=== PATIENT | female | born 1970 | race Caucasian/White ===

== ENCOUNTER 2020-08-07 12:24 | Outpatient (CLI) | payer OTHER, SELFPAY ==
--- NOTE | ~2020-08-07 | MMUS_ITS ---
EXAMINATION: MM diagnostic miranda BI w tamar, US breast RT limited HISTORY: Pain in the periareolar and lower right breast TECHNIQUE: Craniocaudal, mediolateral, and mediolateral oblique 3-D tomosynthesis images of the brielle ts were performed and synthetic 2-D images were generated. CAD analysis was submitted and interpreted . High resolution limited right breast ultrasound was performed. COMPARISON: No prior mammogram is currently available for comparison BREAST PARENCHYMAL COMPOSITION: The breasts are almost entirely fatty. FINDINGS: MAMMOGRAPHIC FINDINGS: There is no evidence of suspicious mass, calcification, or architectural distortion to suggest maljason banegas. No mammographic correlate is identified for the patient's reported right breast pain. ULTRASOUND: There is no evidence of focal abnormal solid or cystic mass in the vicinity of the patient's reported right breast pain. IMPRESSION: 1. No specific mammographic or sonographic correlate is identified for the patient's reported right b reast pain. Further evaluation at this time should be based on clinical assessment. Continued follow- up physical examination is recommended. 2. Recommend routine screening mammography in one year. BI-RADS Category 1: Negative Reviewed, dictated and finalized at location A. IMPRESSION: 1. No specific mammographic or sonographic correlate is identified for the sigrid ent's reported right breast pain. Further evaluation at this time should be [facility] ed on clinical assessment. Continued follow-up physical examination is recommen ded. 2. Recommend routine screening mammography in one year. BI-RADS Category 1: Negative IMPRESSION: 1. No specific mammographic or sonographic correlate is identified for the sigrid ent's reported right breast pain. Further evaluation at this time should be bas ed on clinical assessment. Continued follow-up physical examination is recommen ded. 2. Recommend routine screening mammography in one year. BI-RADS Category 1: Negative
== END 2020-08-07 12:25 | disposition home or self-care (01) ==
LOC: ANHIMG 12:29
PROVIDERS: PCP Internal Medicine; Visit Provider Nurse Practitioner Obstetrics & Gynecology
DX: N64.4 Mastodynia (principal)
CPT/HCPCS: 76642; 77062; 77066; G0279

== ENCOUNTER 2020-09-19 12:51 | Emergency (ER) | payer OTHER, SELFPAY ==
[2020-09-19 13:04] VITALS: BP 170/100; PULSE 96; RESP 24; TEMP 36.7; O2SAT 99
--- NOTE | 2020-09-19 13:10 | PC.NURSE ---
Patient mistakenly checked in to our express care, has appointment next door with Dr Diane, walked her over to office
== END 2020-09-19 13:08 | disposition other institution (70) ==
LOC: EXPTROY 12:56
PROVIDERS: Emergency Provider Emergency Medicine
DX: Z53.21 Procedure and treatment not carried out due to patient leaving prior to being seen by health care provider (principal)
CPT/HCPCS: 99199

== ENCOUNTER 2021-08-21 23:54 | Emergency (ER) | payer OTHER, SELFPAY ==
--- NOTE | ~2021-08-21 | XR_ITS ---
EXAMINATION: XR chest 2V DATE: 08/22/2021 01:02 INDICATION: Difficulty breathing. Popping sensation. TECHNIQUE: frontal and lateral views of the chest were obtained. COMPARISON: Chest radiograph dated 04/02/2017 FINDINGS: Lung volumes are decreased on the frontal projection. Calcified nodule at the left lower lung zone co nsistent with old granulomatous disease. No other airspace opacities, pulmonary edema, pleural effusi on or pneumothorax. The cardiomediastinal silhouette is normal. Mild S-shaped curvature of the thorac ic and lumbar spine. IMPRESSION: 1. No acute cardiopulmonary disease. Reviewed, dictated and finalized at location A.
[2021-08-21 23:50] VITALS: BP 140/95; PULSE 72; RESP 38; TEMP 36.7; O2SAT 99
--- NOTE | 2021-08-22 00:10 | PC.NURSE ---
PT TOOK OFF ALL HER MONITORING LEADS. REFUSING TO HAVE THEM PUT BACK ON. PT ALSO REFUSING FOR THIS RN TO PERFORM A PHYSICAL ASSESSMENT (LUNG SOUNDS). PT IS TACHYPNEIC AND HYPERVENTILATING BUT ABLE TO REPEATEDLY SAY I CAN'T BREATHE'
--- NOTE | 2021-08-22 00:40 | PC.NURSE ---
PT STATES TO THIS RN I DON'T LIKE YOU AND DON'T WANT YOU TO BE MY NURSE CLEO CHARGE NURSE MADE AWARE AND WILL COME UP WITH A NEW PLAN
--- NOTE | 2021-08-22 01:06 | ED.EXTPRO ---
HPI - Extremity Problem General Chief complaint: Extremity Problem,Nontraumatic Stated complaint: RIB PAIN Time Seen by Provider: 08/22/21 00:14 History of Present Illness HPI Narrative: Patient is a 51-year-old female with a history of asthma and COPD who presents via EMS for evaluation of rib pain x 2 hours. Patient states she was getting into bed when she felt a pop and developed pain afterwards. Denies treatment with medication prior to arrival. Patient states she feels the pain when she has a deep breath, but denies any difficulty breathing. She denies any falls, or direct trauma to her thorax, chest pain, neck pain, back pain. Does admit to drinking 12 alcoholic drinks this evening. She has no home oxygen requirement for COPD. Related Data Home Medications Medication Instructions Recorded Confirmed estradiol 2 mg tablet 2 mg PO DAILY 09/19/20 10/01/20 Allergies Allergy/AdvReac Type Severity Reaction Status Date / Time latex Allergy Unknown SWELLING Verified 08/22/21 00:13 ON CONTACT Penicillins Allergy Unknown SWELLING, Verified 08/22/21 00:13 PROBLEMS BREATHING bacitracin AdvReac Intermediate SWELLING Verified 08/22/21 00:13 AND PAIN neomycin AdvReac Intermediate SWELLING Verified 08/22/21 00:13 AND PAIN polymyxin B AdvReac Intermediate SWELLING Verified 08/22/21 00:13 AND PAIN morphine AdvReac Unknown VOMITING Verified 08/22/21 00:13 Grass Allergy Unknown HIVES Uncoded 02/15/19 13:01 Review of Systems Review of Systems: Gen.: Denies fevers or chills Eyes: Denies eye pain or visual change ENT: Denies congestion Respiratory: Denies shortness of breath or cough CV: Denies chest pain or palpitations GI: Denies abdominal pain nausea, emesis or diarrhea denies burning, urgency, frequency or hematuria Musculoskeletal: Reports right-sided rib pain Neuro: Denies numbness, tingling, weakness or focal weakness Skin: Denies rash Except as documented, all other systems reviewed and negative All systems reviewed & are unremarkable except as noted in HPI and below PMFSH Past Medical History Medical History Anxiety Asthma Coughing Hypertension IBS (irritable bowel syndrome) Seasonal allergies Surgical History Surgical History H/O: hysterectomy 2019 Hx of section 1988 & 1997 Family History Family History (Updated 09/19/20 @ 13:44 by Glen Marlow [facility]) Grandparent No problems noted. Grandparent Cancer Social History Social History (Updated 09/19/20 @ 13:44 by Glen Marlow [facility]) Tobacco type: cigarettes Alcohol intake: current Substance use: never Exam Narrative: APPEARANCE: Well appearing, no pain in distress, well-nourished. Head: normocephalic and atraumatic. EYES: PERRLA/EOMI, conjunctivae clear NOSE: No nasal drainage EARS: External ear normal in appearance THROAT: Oropharynx is clear. Mucous membranes are moist. NECK: Supple. No adenopathy, no masses. RESPIRATORY: Decreased breath sounds throughout, although patient not cooperating and not taking deep breaths as instructed. No audible wheezing. Tachypneic when initially walking in room, but this normalizes and patient is speaking in full sentences. CARDIOVASCULAR: Regular rate and rhythm without murmurs, rubs, or gallops. ABDOMINAL: Normoactive bowel sounds. Soft, nontender, nondistended. No rebound tenderness or guarding. MUSCULOSKELETAL: Tender to palpation over the left posterior inferior rib cage. No step-offs palpated. Extremities are warm and well-perfused. Moves all extremities well. No edema. NEURO: Normal speech. No focal neurologic deficits. SKIN: No contusions over abdomen. Skin is warm and dry. No rashes. PSYCHIATRIC: Labile affect. Appears intoxicated. Course Course Emergency Course: Patient rechecked, resting
[2021-08-22] MEDS: ACETAMINOPHEN 500 MG TABLET 1000 MG PO (01:30)
[2021-08-22] MEDS: IBUPROFEN 400 MG TABLET 800 MG PO (01:31)
[2021-08-22] MEDS: LIDOCAINE 5% PATCH 1 PATCH TRANSDERM (03:08)
== END 2021-08-22 03:17 | disposition home or self-care (01) ==
PROVIDERS: Emergency Provider Emergency Medicine; PCP Nurse Practitioner Family
DX: R07.81 Pleurodynia (principal); J44.9 Chronic obstructive pulmonary disease, unspecified; I10 Essential (primary) hypertension; K58.9 Irritable bowel syndrome, unspecified; F17.210 Nicotine dependence, cigarettes, uncomplicated
CPT/HCPCS: 71046; 99283; A9270

== ENCOUNTER 2022-11-25 23:04 | Emergency (ER) | payer OTHER, SELFPAY ==
--- NOTE | ~2022-11-25 | CT_ITS ---
Non-contrast Head CT History: Trauma COMPARISON: 11/13/2015 Technique: Axial non-contrast imaging of the brain was performed. Dose reduction technique was used on this scan by utilizing automated exposure control and iterative reconstruction technique. The dose -length product (DLP) was 681.00 mGy-cm. Findings: There is no evidence of intracranial hemorrhage, mass lesion, or acute infarct. Brain par enchyma appears normal. The ventricles and subarachnoid spaces are normal in size. The calvarium ap pears normal. The visualized paranasal sinuses and mastoid air cells are clear. Impression: No significant abnormality seen. Reviewed, dictated and finalized at location . Impression: No significant abnormality seen.
--- NOTE | ~2022-11-25 | CT_ITS ---
Noncontrast CT scan of the cervical spine Technique: Multiple contiguous axial [address] images of the cervical spine were obtained and rec onstructed in 2D sagittal and coronal planes on the acquisition scanner. Dose reduction technique was used on this scan by utilizing automated exposure control, adjustment of the mA and/or kV according to patient size. The dose-length product (DLP) was 602.73 mGy-cm. Clinical History: Pain Findings: No fractures or dislocations. There is reversal of the normal cervical lordosis. Intervert ebral disc spaces are well preserved. No prevertebral soft tissue swelling. Impression: No fracture or subluxation of the cervical spine. Reversal of the normal cervical lordosis. Reviewed, dictated and finalized at location . Impression: No fracture or subluxation of the cervical spine. Reversal of the normal cervical lordosis.
--- NOTE | ~2022-11-25 | XR_ITS ---
Left Hand Technique: PA, oblique, and lateral views were obtained. Clinical History: Pain Findings: There is a comminuted fracture involving the third metacarpal head/distal neck, minimally d isplaced overall no intra-articular extension. Joint spaces are preserved. Soft tissues are unremarka ble. Impression: Comminuted, minimally displaced fracture of the third metacarpal head/distal neck. No definite intra- articular extension. Reviewed, dictated and finalized at location M. Impression: Comminuted, minimally displaced fracture of the third metacarpal head/distal ne ck. No definite intra-articular extension.
[2022-11-25 23:08] VITALS: BP 174/112; PULSE 90; RESP 16; TEMP 36.5; O2SAT 99
[2022-11-26] MEDS: ONDANSETRON HCL ODT 4 MG TABLET PO (00:42)
[2022-11-26] MEDS: TETANUS,DIPHTHERIA,AC PERTUSSIS ADULT (0.5 ML) BOOSTRIX IM (00:43)
[2022-11-26] MEDS: LIDO 1%/EPINEPHRINE 1:100,000 20 ML VIAL 10 ML INFILTRATE (01:44)
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
[2022-11-26 01:55] VITALS: BP 173/98; PULSE 90; RESP 18; O2SAT 99
== END 2022-11-26 01:55 | disposition home or self-care (01) ==
PROVIDERS: Emergency Provider Emergency Medicine; PCP Nurse Practitioner Family
DX: S06.0X0A Concussion without loss of consciousness, initial encounter (principal); S01.81XA Laceration without foreign body of other part of head, initial encounter; S62.333A Displaced fracture of neck of third metacarpal bone, left hand, initial encounter for closed fracture; Z23 Encounter for immunization; J45.909 Unspecified asthma, uncomplicated; I10 Essential (primary) hypertension; K58.9 Irritable bowel syndrome, unspecified; F17.210 Nicotine dependence, cigarettes, uncomplicated; Z90.710 Acquired absence of both cervix and uterus; Y00.XXXA Assault by blunt object, initial encounter
CPT/HCPCS: 12011; 29125; 70450; 72125; 73130; 90471; 90715; 99284; A9270

== ENCOUNTER 2022-12-24 11:22 | Outpatient (CLI) | payer OTHER, SELFPAY ==
--- NOTE | ~2022-12-24 | XR_ITS ---
EXAM: XR hand LT min 3V DATE: 12/24/2022 11:37 HISTORY: left hand fracture 4WKS AGO. REHIT IT LAST NIGHT. PAIN . COMPARISON: None available. FINDINGS: Normal mineralization. Redemonstration of the comminuted distal left third metacarpal frac ture, now with increased anterior angulation and increased impaction. Early healing callus noted. No new acute fracture or dislocation. No lytic or blastic lesion. Mild scattered degenerative changes in the wrist and hand. No erosion or periosteal change. Soft tissues within normal limits. IMPRESSION: Increased anterior angulation and impaction of the comminuted distal left third metacarpa l fracture. Reviewed, dictated and finalized at location K. IMPRESSION: Increased anterior angulation and impaction of the comminuted dista l left third metacarpal fracture.
== END 2022-12-24 11:23 | disposition home or self-care (01) ==
LOC: ANHIMG 11:25
PROVIDERS: PCP Nurse Practitioner Family; Visit Provider Plastic Surgery
DX: S62.309A Unspecified fracture of unspecified metacarpal bone, initial encounter for closed fracture (principal); X58.XXXA Exposure to other specified factors, initial encounter
CPT/HCPCS: 73130

== ENCOUNTER 2023-07-10 13:02 | Inpatient (IN) | payer OTHER, SELFPAY ==
[2023-07-10] VITALS (13 sets, daily range): BP systolic 91–160; BP diastolic 73–104; PULSE 79–96; RESP 15–24; TEMP 36.4–37.2; O2SAT 92–99; BMI 28.2
--- NOTE | ~2023-07-10 | CT_ITS ---
EXAMINATION: CT brain wo con INDICATION: Altered mental status COMPARISON: None TECHNIQUE: Standard unenhanced head CT. The dose-length product (DLP) was 681.00 mGy-cm. The mA was a djusted according to patient size. Iterative reconstruction technique was employed. FINDINGS: No intracranial hemorrhage, acute infarction, or abnormal mass lesion. The ventricles are n ormal. No abnormal mass effect or midline shift. The zeng-white matter differentiation is normal. The basal cisterns are patent. The orbits are normal. There is mild mucosal thickening of the paranasal sinuses. IMPRESSION: 1. No acute intracranial abnormality. Reviewed, dictated and finalized at location F.
--- NOTE | ~2023-07-10 | CT_ITS ---
EXAMINATION: CT abdomen pelvis w con DATE: 07/10/2023 15:46 INDICATION: Vomiting and diarrhea. Low back pain for one week. Dysuria. Hematuria. TECHNIQUE: Computed tomography (CT) of the abdomen and pelvis was performed with 100 CC Omnipaque 350 intravenous contrast. Automated exposure control and iterative reconstruction technique were employe d. Exam dose: 978.60 mGy-cm total exam DLP. COMPARISON: 11/17/2016 CT abdomen pelvis FINDINGS: The lung bases are clear of infiltrate or consolidation. Calcified pulmonary granuloma, dionisio gula. Normal heart size. No pericardial or pleural effusion. Small sliding hiatal hernia. There are 2 hemangiomas of the hepatic dome, present on 11/17/2016 as well, essentially unchanged. Hepatic steatosis. The gallbladder appears unremarkable. No bile duct or pancreatic duct dilatation. No pancreatic mass lesion or calcification. Splenic calcified granulomas. No splenomegaly. Stable small left adrenal mass, likely an adenoma. Stable left adrenal adenomas since 11/17/2016. There is mild bilateral scarring likely related to chronic bilateral pyelonephritis. No suspicious re nal space-occupying mass lesion or urinary tract calculus or hydroureteronephrosis. Urinary bladder appears unremarkable. Status post hysterectomy. Normal caliber of the abdominal aorta. No intraperitoneal or retroperitoneal or pelvic mass lesion or adenopathy or ascites is noted. Normal appendix. No bowel obstruction, bowel wall thickening, pneumatosis or intraperitoneal free air . Old bilateral rib fractures. Severe degenerative disease at L3-4. Moderately severe degenerative disease at L4-5. Prominent degenerative change at the apophyseal joints, with associated grade 1 anterolisthesis at L4 -5. IMPRESSION: Normal appendix. No bowel obstruction or free air Small sliding hiatal hernia Hemangiomas of the liver Hepatic steatosis Stable small left adrenal adenoma Bilateral mild chronic pyelonephritis Status post hysterectomy Reviewed, dictated and finalized at [facility]. Reviewed, dictated and finalized at [facility].
--- NOTE | ~2023-07-10 | XR_ITS ---
XR chest 1V portable DATE: 07/10/2023 15:05 INDICATION: Cough, shortness of breath. History of COPD, hypertension. Smoker. TECHNIQUE: Portable AP chest on 07/10/2023 at 1500 hours COMPARISON: AP and lateral chest on 08/22/2021 FINDINGS: Normal heart size. No hilar or mediastinal enlargement. Calcified pulmonary granuloma, left lower lung. Minimal infiltrate or atelectasis is suggested in the lower lung zones; otherwise no pul monary infiltrate or consolidation, pleural effusion or pulmonary vascular congestion or pneumothorax is evident. Osteopenia. Thoracic scoliosis. IMPRESSION: Minimal infiltrate or atelectasis is suggested in the lower lung zones; otherwise no acti ve cardiopulmonary disease Reviewed, dictated and finalized at location [facility]. IMPRESSION: Minimal infiltrate or atelectasis is suggested in the lower lung zo lainey; otherwise no active cardiopulmonary disease
--- NOTE | 2023-07-10 13:27 | PC.NURSE ---
Pt had an active witnessed seizure lasting roughly 2 minutes in the ED waiting room. Pt was non responsive to any stimuli and had agonal breathing with slight convulsing. Pt immediately brought back to room 8 and began to come to. Pt does not remember the event. Dr. Espinoza at bedside.
[2023-07-10 13:36] LABS: Basophils Percent Auto 0.4 % (0.2-1.2); Hematocrit 41.9 % (37.0-47.0); Hemoglobin 14.4 g/dL (12.0-15.0); Immature Granulocyte Absolute 0.04 K/mm3 (0.00-0.031); Immature Granulocyte Percent A 0.9 % (0-0.5); Lymphocytes Absolute Auto 1.39 K/mm3 (0.9-3.2); Mean Corpuscular HGB Conc 34.4 g/dl (32-36); Mean Corpuscular Hemoglobin 30.6 pg (26-34); Mean Platelet Volume 9.1 fl (7.4-10.4); Monocytes Absolute Auto 0.7 K/mm3 (0.1-0.6); Monocytes Percent Auto 14.7 % (2.6-8.5); Neutrophils Absolute Auto 2.4 K/mm3 (1.3-6.7); Platelet Count Result 192 k/mm3 (150-375); Red Blood Count 4.71 M/mm3 (4.2-5.4); Red Cell Distribution Width 12.7 % (11.5-14.5); White Blood Count 4.5 K/mm3 (4.5-10.0)
[2023-07-10 13:48] LABS: Prothrombin Time 13.1 Seconds (11.1-14.7)
[2023-07-10 13:49] LABS: Alanine Aminotransferase 61 U/L (6-35); Albumin Level 4.6 g/dL (3.5-5.1); Alkaline Phosphatase 130 U/L (38-126); Anion Gap 10 mmol/L (8-16); Aspartate Amino Transferase 84 U/L (14-36); Bilirubin,Total 0.4 mg/dL (0.2-1.3); Blood Urea Nitrogen 15 mg/dL (7-17); Calcium 9.5 mg/dL (8.4-10.2); Carbon Dioxide 19 mmol/L (22-30); Chloride 97 mmol/L (98-107); Estimated CRCL calculation 43 ml/min; Estimated Glomerular Filt Rate 43; Glucose 128 mg/dL (65-110); Lactic Acid Reflex 2.7 mmol/L (0.7-2.0); Lipase 354 U/L (23-300); Magnesium 2.3 mg/dL (1.6-2.3); Potassium 3.9 mmol/L (3.4-5.0); Sodium 126 mmol/L (137-145)
[2023-07-10 13:51] LABS: Ethanol < 10 mg/dL (<10)
[2023-07-10 14:19] LABS: Appearance Urine Cloudy (Clear); Bacteria Urine None Seen /hpf; Bilirubin Urine Negative (Negative); Blood Urine Negative (Negative); Color Urine Yellow (Yellow); Glucose Urine UA Negative (Negative); Ketones Urine Trace mg/dL (Negative); Leukocyte Esterase Ur Negative LEU/UL (Negative); Need Manual Microscopic Reviewed; Nitrate Urine Negative (Negative); Non Pathogenic Casts 0-2; Protein Urine 1+ mg/dL (Negative); RBC Urine 0-2 /hpf (0-2); Specific Grav Ur 1.018 (1.001-1.035); Squamous Epithelial Cell Urine Few /hpf (Few); WBC Urine 0-5 /hpf (0-3); pH Urine 6.5 (5.0-9.0)
[2023-07-10 14:22] LABS: Add Urine Microscopic? YES
[2023-07-10] MEDS: SODIUM CHLORIDE 0.9% IV 1,000 ML 999 ML IV CONT ×2 (14:43→14:59)
[2023-07-10 14:48] LABS: Amphetamine Screen Urine Negative (Negative); Barbiturate Screen Urine Negative (Negative); Benzodiazepines Screen Urine Negative (Negative); Cannabinoid Screen Urine Positive (Negative); Cocaine Screen Urine Negative (Negative); Methadone Screen Urine Negative (Negative); Opiate Screen Urine Negative (Negative); Phencyclidine Screen Urine Negative (Negative)
--- NOTE | 2023-07-10 14:48 | ED.GENADULT ---
HPI - General Adult General Chief complaint: Urogenital-Female Stated complaint: uti/kidney inf Time Seen by Provider: 07/10/23 13:25 History of Present Illness HPI narrative: Patient is a 53-year-old female presenting with altered mental status. Patient's family is at bedside and helps with the history. States that they have both had respiratory symptoms with cough, nasal congestion. They have both also had a lot of diarrhea and nausea. Patient states that she has not been able to keep anything down. While in the waiting room she had an episode of altered mental status. She was staring off and was minimally responsive. She was brought back to a room and then had several episodes of emesis. No tongue biting, seizure-like activity, bladder or bowel incontinence. Patient reports shortness of breath lately but no chest pain. No leg swelling. Denies any abdominal pain currently. Related Data Allergies Allergy/AdvReac Type Severity Reaction Status Date / Time latex Allergy Unknown SWELLING Verified 07/10/23 13:08 ON CONTACT Penicillins Allergy Unknown SWELLING, Verified 07/10/23 13:08 PROBLEMS BREATHING bacitracin AdvReac Intermediate SWELLING Verified 07/10/23 13:08 AND PAIN neomycin AdvReac Intermediate SWELLING Verified 07/10/23 13:08 AND PAIN polymyxin B AdvReac Intermediate SWELLING Verified 07/10/23 13:08 AND PAIN morphine AdvReac Unknown VOMITING Verified 07/10/23 13:08 Grass Allergy Unknown HIVES Uncoded 07/10/23 13:08 Review of Systems Review of Systems: All systems reviewed & are unremarkable except as noted in HPI and below PMFSH Past Medical History Medical History (Updated 07/10/23 @ 22:24 by Denise Espinoza MD) Anxiety Asthma Chronic obstructive pulmonary disease Chronic rhinitis Hypertension Irritable bowel syndrome Seasonal allergies Tobacco abuse Surgical History Surgical History (Updated 07/10/23 @ 20:58 by Tricia rPesley PA-C) History of section 1988 and 1997 History of colonoscopy History of hysterectomy (2019) Family History Family History Grandparent No problems noted. Grandparent Cancer Social History Social History (Updated 07/10/23 @ 20:58 by Tricia Presley PA-C) Social History: Surrogate medical decision maker: Moe Case, significant other. Code status: Full code. Smoking packs per day: 0.5 Smoking cigarettes per day: 10.0 Years smoked: 40 Smoking pack-years: 20.00 Smoking status: Current every day smoker Tobacco type: cigarettes Alcohol intake: current Drinks per week: 12 Alcohol use details: 3 to 6 beers a day. Substance use: current Substance use type: marijuana Do You Feel Safe in your Home?: Yes Lack of Transportation: No Lack of Food: Never True Current Housing: Decline to Answer Concerned About Future Housing: No Difficulty Paying Gas/Electric Bills: No Difficulty Paying for Meds: No Currently Unemployed: YES Education: High School Diploma/GED Difficulty w/ Childcare or Family Care: No Spiritual care concerns: No Exam Narrative: GENERAL: Nontoxic, in no acute distress HEAD: Normocephalic, atraumatic. EYES: PERRLA and EOMI. ENT: Mucous membranes tacky NECK: Supple. CHEST: Clear to auscultation. No respiratory distress. HEART: Regular rate and rhythm ABDOMEN: Soft, nontender, nondistended EXTREMITIES: Normal range of motion. No edema. SKIN: Warm, dry, no rash. NEURO: No focal deficits. Alert and oriented x3. PSYCH: Normal mood and affect. Course Vital Signs Vital signs: Vital Signs Temperature 97.5 F L 07/10/23 13:03 Pulse Rate 93 07/10/23 13:03 Respiratory Rate 20 07/10/23 13:03 Blood Pressure 96/76 L 07/10/23 13:03 Pulse Oximetry 99 07/10/23 13:03 Oxygen Delivery Room Air 07/10/23 13:03 Temperature 98.4 F 07/13/23 11:52 P
[2023-07-10] MEDS: ONDANSETRON INJ 4 MG/2 ML VIAL IV PUSH (14:58)
[2023-07-10] MEDS: IPRATROPIUM BR 0.02% INH SOLN 0.5 MG/2.5 ML VIAL INHALATION (15:10)
[2023-07-10] MEDS: ALBUTEROL SULFATE NEB 2.5 MG/3 ML INH 5 MG INHALATION (15:10)
[2023-07-10 16:33] LABS: Reflex Lactic Acid Yes or No Add Lactic
[2023-07-10 16:42] LABS: Influenza A QL RT-PCR Negative (Negative); Influenza B QL RT-PCR Positive (Negative); RSV RNA, RT-PCR Negative (Negative); SARS-CoV-2 RNA PCR Negative (Negative)
[2023-07-10 17:32] LABS: Anion Gap 6 mmol/L (8-16); Blood Urea Nitrogen 17 mg/dL (7-17); Calcium 8.5 mg/dL (8.4-10.2); Carbon Dioxide 21 mmol/L (22-30); Chloride 97 mmol/L (98-107); Estimated CRCL calculation 43 ml/min; Estimated Glomerular Filt Rate 43; Glucose 103 mg/dL (65-110); Potassium 3.6 mmol/L (3.4-5.0); Sodium 124 mmol/L (137-145)
[2023-07-10 17:33] LABS: Creatine Kinase 76 U/L (30-135); Lactic Acid 1.6 mmol/L (0.7-2.0)
--- NOTE | 2023-07-10 18:08 | ADMGEN ---
This patient, Raven Nicole, was admitted to 3 Med Surg Room 303-01 @ 1808. Patient/family oriented to hospital policies and general routines including ID bracelet, bed and alarms, visiting hours, pain management, procedures, bathroom and other care routines, personal items, smoking policy, room service/diet, and visiting hours. Information on how to activate the Rapid Response Team has been discussed. Patient/Family are encouraged to report perceived risks to care and to ask questions if they do not understand what they are told or what they should do.
--- NOTE | 2023-07-10 19:26 | PM.IMHP ---
H&P: HPI History of Present Illness Date/Time: 07/10/23 19:25 Chief Complaint: Multiple complaints. Narrative: This is a 53-year-old female smoker with chronic obstructive pulmonary disease, asthma, hypertension, and anxiety who presented to the emergency department via private vehicle for evaluation of multiple complaints. The patient provides the following history. Her boyfriend had URI symptoms last week in and she began to feel unwell on Thursday with symptoms to include diffuse headache, sinus congestion, dry cough, sore throat, and body aches. The last several days she has developed nausea and reports multiple episodes of nonbloody and nonbilious emesis as well as diarrhea each day. She also reports subjective fever, chills, and sweats. Her appetite is terrible and she has had minimal oral intake. While in triage she told her boyfriend that she was feeling particularly unwell at which time she apparently had a syncopal episode. Boyfriend reports that her head fell backwards and she became extremely pale. He noticed that her arms were tremoring and they are concerned that she may have had a seizure. In fact she has had several episodes where she has blacked out over the years without explanation, frequently coming to in a confused state. It does not sound as though she has had a complete workup for that. She was immediately brought back to a room for evaluation where she had several episodes of emesis. In any event, she was afebrile on arrival to the ED. She had a couple of lower blood pressures but it has improved with IV fluids. Labs were significant for a sodium of 126, chloride 97, carbon dioxide 19, BUN 15, creatinine 1.30, lactic acid 2.7, AST 84, ALT 61, alkaline phosphatase 130, lipase 354. Urine was positive for 1+ protein trace ketones. She tested positive for influenza B. Brain CT showed no acute findings. Chest x-ray showed minimal infiltrate or atelectasis in the lower lung zones. CT of the abdomen and pelvis showed no acute findings. She was given a 2 L normal saline bolus and she is being admitted in this setting for further treatment. Review of Systems Review of Systems: Twelve systems were reviewed. No focal weakness, paresthesias, vertigo, visual changes, facial droop, or difficulties speaking and swallowing. She denies tongue bite. No bowel or bladder incontinence. No chest pain or shortness of breath. She denies urinary symptoms. No alcohol for the last 5 days. She has never had signs or symptoms of alcohol withdrawal. Except as documented, all other systems were reviewed and are negative. [facility] Past Medical History Medical History (Updated 07/10/23 @ 21:06 by Tricia Presley PA-C) Anxiety Asthma Chronic obstructive pulmonary disease Chronic rhinitis Hypertension Irritable bowel syndrome Seasonal allergies Tobacco abuse Surgical History Surgical History (Updated 07/10/23 @ 20:58 by Tricia Presley PA-C) History of section 1988 and 1997 History of colonoscopy History of hysterectomy (2019) Family History Family History Grandparent No problems noted. Grandparent Cancer Social History Social History (Updated 07/10/23 @ 20:58 by Tricia Presley PA-C) Social History: Surrogate medical decision maker: Moe Jeff, significant other. Code status: Full code. Smoking packs per day: 0.5 Smoking cigarettes per day: 10.0 Years smoked: 40 Smoking pack-years: 20.00 Smoking status: Current every day smoker Tobacco type: cigarettes Alcohol intake: current Drinks per week: 12 Alcohol use details: 3 to 6 beers a day. Substance use: current Substance use type: marijuana Do You Feel Safe in your Home?: Yes Lack of Transportation: No Lack of Food: Never True Current Housing: Decline to Answer Concerned About Future Housing: No Difficulty Paying Gas/Electric Bills: No Difficulty Payi
[2023-07-10 20:27] LABS: Creatinine Urine 201.1 mg/dL
[2023-07-10 20:29] LABS: Sodium Urine Random 29 meq/L
[2023-07-10] MEDS: SODIUM CHLORIDE 0.9% IV 1,000 ML 100 ML IV CONT (21:25)
[2023-07-10] MEDS: OSELTAMIVIR PHOSPHATE 30 MG CAPSULE PO (21:30)
[2023-07-10 23:46] LABS: Sodium 125 mmol/L (137-145)
[2023-07-11] VITALS (9 sets, daily range): BP systolic 140–190; BP diastolic 71–99; PULSE 69–87; RESP 16; TEMP 36.1–36.6; O2SAT 93–98
[2023-07-11 00:21] LABS: Hepatitis B Surface Antigen Negative (Negative)
[2023-07-11 00:27] LABS: HAV RESULT Negative (Negative); Hepatitis B Core IgM Result Negative (Negative)
[2023-07-11 00:39] LABS: Hepatitis C Virus Antibody Negative (Negative)
[2023-07-11 06:48] LABS: Hematocrit 35.3 % (37.0-47.0); Hemoglobin 11.8 g/dL (12.0-15.0); Mean Corpuscular HGB Conc 33.4 g/dl (32-36); Mean Corpuscular Hemoglobin 30.3 pg (26-34); Mean Corpuscular Volume 90.7 fl (80-100); Mean Platelet Volume 10.1 fl (7.4-10.4); Platelet Count Result 114 k/mm3 (150-375); Red Blood Count 3.89 M/mm3 (4.2-5.4); Red Cell Distribution Width 12.9 % (11.5-14.5); White Blood Count 2.9 K/mm3 (4.5-10.0)
[2023-07-11 06:58] LABS: Alanine Aminotransferase 51 U/L (6-35); Albumin Level 3.5 g/dL (3.5-5.1); Alkaline Phosphatase 98 U/L (38-126); Anion Gap 5 mmol/L (8-16); Aspartate Amino Transferase 58 U/L (14-36); Bilirubin,Total 0.4 mg/dL (0.2-1.3); Blood Urea Nitrogen 15 mg/dL (7-17); Calcium 8.1 mg/dL (8.4-10.2); Carbon Dioxide 17 mmol/L (22-30); Chloride 102 mmol/L (98-107); Estimated CRCL calculation 63 ml/min; Estimated Glomerular Filt Rate 58; Glucose 90 mg/dL (65-110); Magnesium 1.9 mg/dL (1.6-2.3); Potassium 3.6 mmol/L (3.4-5.0); Sodium 124 mmol/L (137-145)
[2023-07-11] MEDS: SODIUM CHLORIDE 0.9% IV 1,000 ML 100 ML IV CONT (08:28)
[2023-07-11] MEDS: OSELTAMIVIR PHOSPHATE 30 MG CAPSULE PO ×2 (08:29→20:02)
[2023-07-11] MEDS: MONTELUKAST SODIUM 10 MG TABLET PO (08:29)
[2023-07-11] MEDS: busPIRone HCL 5 MG TABLET 15 MG PO ×2 (08:29→16:51)
[2023-07-11] MEDS: ENOXAPARIN 40 MG/0.4 ML SYRINGE SUB-Q (08:29)
[2023-07-11] MEDS: CITALOPRAM HYDROBROMIDE 20 MG TABLET 40 MG PO (08:29)
--- NOTE | 2023-07-11 12:47 | PM.IMPN ---
Progress Note: A&P Assessment and Plan (1) Acute kidney injury: Code(s): N17.9 - Acute kidney failure, unspecified Status: Acute (2) Sepsis: Code(s): A41.9 - Sepsis, unspecified organism Status: Acute (3) Influenza B: Code(s): J10.1 - Influenza due to other identified influenza virus with other respiratory manifestations Status: Acute (4) Dehydration: Code(s): E86.0 - Dehydration Status: Acute (5) Vasovagal syncope: Code(s): R55 - Syncope and collapse Status: Acute (6) Hyponatremia: Code(s): E87.1 - Hypo-osmolality and hyponatremia Status: Acute (7) Elevated LFTs: Code(s): R79.89 - Other specified abnormal findings of blood chemistry Status: Acute (8) Chronic obstructive pulmonary disease: Code(s): J44.9 - Chronic obstructive pulmonary disease, unspecified Status: Acute (9) Hypertension: Code(s): I10 - Essential (primary) hypertension Status: Acute (10) Tobacco abuse: Code(s): Z72.0 - Tobacco use Status: Acute Plan 83-year-old female who presented on 07/10/2023 with altered mental status. Patient had respiratory symptoms with cough nasal congestion lots of diarrhea nausea since past few weeks. While in the waiting room she had an episode of altered mental status and was staring off with minimally responsiveness. She was brought to the room and then had several episodes of emesis no tongue biting seizure-like activity bowel or bladder incontinence. She reports some shortness of breath but no chest pain. She was mildly hypotensive eyes was afebrile. Laboratory evaluation revealed hyponatremia of 125 mild acidosis SILVERIO with creatinine 1. CT abdomen and pelvis with chronic pyelonephritis but no acute abnormalities. CT brain without any acute abnormalities. Patient tested positive for influenza B. WBC platelet 192 lactic acid was elevated at 2.7. Lipase elevated at 354. Urine drug screen positive for cannabinoids. Urine sodium 29 without alcohol less than 10 influenza a RSV and COVID was negative. Chest x-ray showed minimal infiltrate or atelectasis suggested in the lower lung zones otherwise no active cardiopulmonary disease. Patient received IV fluids with improvement in her blood pressure and lactic acid level. No evidence of any bacterial infection and hence antibiotics on hold. Blood culture has been obtained. Influenza B treated with Tamiflu which will be continued. Hyponatremia clear related to dehydration p.o. intake nausea vomiting and diarrhea for the past several days along with chronic alcohol use. No prior levels available Syncopal episode likely vasovagal. Seizure is a possibility prior several episodes of unexplained blackouts. She is monitored on telemetry to rule out any cardiac dysrhythmias. Echo and EEG is ordered. CT head is negative Elevated LFTs: Viral infection versus chronic alcohol use. Hepatitis profile negative. SILVERIO mild resolved Anxiety depression home medication citalopram buspirone Chronic alcohol abuse [facility] protocol DVT prophylaxis Lovenox Code status full code Subjective Date/time seen: 07/11/23 12:47 Interval history: Chart reviewed. Feels okay. Denies any new complaints. Review of Systems Review of Systems: All systems reviewed & are unremarkable except as noted in HPI and below Exam Narrative: General: Mildly ill-appearing female in the semi-Richey position in bed. HEENT: Normocephalic, atraumatic. PERRL, EOMI. Sclera anicteric. Tacky mucous membranes. Neck: Supple. Respiratory: Respirations are nonlabored. Lung sounds are a bit diminished at the bases but otherwise clear to auscultation. Cardiovascular: Regular rate and rhythm with S1-S2. Gastrointestinal: Abdomen is soft, nontender, and nondistended with positive bowel sounds. Skin: Warm and dry. Livedo reticularis of the bilateral lower extremities which she states is chronic and unchan
[2023-07-11] MEDS: hydrOXYzine HCL 25 MG TABLET PO (13:02)
[2023-07-11] MEDS: LOPERAMIDE HCL 2 MG CAPSULE PO (15:24)
--- NOTE | 2023-07-11 21:07 | ECHO_ITS ---
Patient Info Name: Raven Nicole Age: 53 years : 1970 Gender: Female Ht: 67 in Wt: 180 lbs BSA: 1.98 m2 HR: 78 bpm BP: 156 / 80 mmHg Heart Rhythm: Sinus Rhythm Technical Quality: Fair Exam Date: 07/11/2023 8:36 AM Exam Location: Echo Lab Exam Room: 303 Patient Status: Inpatient Admit Date: 07/10/2023 Staff Ordering Physician: Tricia Presley PA-C [place] Turner: Cindy Koroma RDCS Attending Provider: Elaine Wright MD Referring Physician: Sakina GLASS; Exam Type: CA echo doppler color flow Study Info Indications - syncope influenza Complete two-dimensional, color flow and Doppler transthoracic echocardiogram is performed. Summary 1. Complete two-dimensional, color flow and Doppler transthoracic echocardiogram is performed. 2. Left ventricular chamber dimension is normal. 3. Left ventricular systolic function is hyperdynamic, estimated at >70%. 4. There is moderately increased left ventricular wall thickness. 5. The left ventricular diastolic function is grade II diastolic dysfunction. 6. There is mild tricuspid valve regurgitation. 7. There is mild pulmonic regurgitation. Left Ventricle Left ventricular chamber dimension is normal. Left ventricular systolic function is hyperdynamic, estimated at >70%. There is moderately increased left ventricular wall thickness. The left ventricular diastolic function is grade II diastolic dysfunction. Right Ventricle Right ventricular chamber dimension is normal. Right ventricular systolic function is normal. Left Atria Left atrial chamber dimension is normal. Right Atria Right atrial chamber dimension is normal. Atrial Septum Intact interatrial septum visualized by color flow imaging. Aortic Valve The aortic valve is trileaflet. There is mild aortic valve sclerosis. There is no aortic valve stenosis. There is trace aortic valve regurgitation. Pulmonic Valve The pulmonic valve is normal. There is no pulmonic valve stenosis. There is mild pulmonic regurgitation. Mitral Valve The mitral valve has thickened leaflets. There is no mitral valve stenosis. There is trace mitral valve regurgitation. Tricuspid Valve The tricuspid valve leaflets are normal. There is no significant tricuspid valve stenosis. There is mild tricuspid valve regurgitation. No pulmonary hypertension, estimated pulmonary arterial systolic pressure is 31 mmHg. Pericardium/Pleural The pericardium appears normal. There is no pericardial effusion. Inferior Vena Cava Normal inferior vena cava with >50% collapse upon inspiration consistent with normal right atrial pressure, 10 mmHg. Aorta The aortic root size at the sinus of Valsalva is mildly dilated. Left Ventricular Outflow Tract Name Value Normal LVOT 2D LVOT Diameter 2.0 cm LVOT Doppler LVOT Peak Gradient 5 mmHg LVOT Mean Gradient 3 mmHg LVOT VTI 20 cm LVOT VTI/AV VTI Ratio 0.7 LVOT Stroke Volume 62 ml LVOT CO 14.2 l/min LVOT CI 7.1 l/min/m2 Pulmonic Valve ----
[2023-07-11] MEDS: METOPROLOL SUCCINATE EXT REL 25 MG TABCR PO (21:47)
[2023-07-11] MEDS: METOPROLOL SUCCINATE EXT REL 50 MG TABCR PO (21:47)
[2023-07-12] VITALS (13 sets, daily range): BP systolic 140–187; BP diastolic 78–98; PULSE 62–80; RESP 16–18; TEMP 36.3–36.4; O2SAT 96–99
[2023-07-12 07:25] LABS: Basophils Percent Auto 0.8 % (0.2-1.2); Eosinophils Percent Auto 0.4 % (0-4.4); Hematocrit 37.6 % (37.0-47.0); Hemoglobin 12.4 g/dL (12.0-15.0); Immature Granulocyte Absolute 0.02 K/mm3 (0.00-0.031); Immature Granulocyte Percent A 0.8 % (0-0.5); Lymphocytes Absolute Auto 0.83 K/mm3 (0.9-3.2); Lymphocytes Percent Auto 33.9 % (18.3-44.2); Mean Corpuscular Hemoglobin 29.9 pg (26-34); Mean Corpuscular Volume 90.6 fl (80-100); Mean Platelet Volume 9.4 fl (7.4-10.4); Monocytes Absolute Auto 0.2 K/mm3 (0.1-0.6); Monocytes Percent Auto 9.8 % (2.6-8.5); Neutrophils Absolute Auto 1.3 K/mm3 (1.3-6.7); Neutrophils Percent Auto 54.3 % (45.5-73.1); Platelet Count Result 135 k/mm3 (150-375); Red Blood Count 4.15 M/mm3 (4.2-5.4); Red Cell Distribution Width 12.6 % (11.5-14.5); White Blood Count 2.5 K/mm3 (4.5-10.0)
[2023-07-12 08:01] LABS: Alanine Aminotransferase 48 U/L (6-35); Albumin Level 3.6 g/dL (3.5-5.1); Alkaline Phosphatase 98 U/L (38-126); Anion Gap 5 mmol/L (8-16); Aspartate Amino Transferase 53 U/L (14-36); Bilirubin,Total 0.4 mg/dL (0.2-1.3); Blood Urea Nitrogen 9 mg/dL (7-17); Calcium 8.5 mg/dL (8.4-10.2); Carbon Dioxide 20 mmol/L (22-30); Chloride 103 mmol/L (98-107); Estimated CRCL calculation 77 ml/min; Estimated Glomerular Filt Rate > 60; Glucose 89 mg/dL (65-110); Magnesium 1.8 mg/dL (1.6-2.3); Potassium 3.5 mmol/L (3.4-5.0); Sodium 128 mmol/L (137-145)
[2023-07-12] MEDS: busPIRone HCL 5 MG TABLET 15 MG PO ×2 (08:42→17:33)
[2023-07-12] MEDS: CITALOPRAM HYDROBROMIDE 20 MG TABLET 40 MG PO (08:42)
[2023-07-12] MEDS: MONTELUKAST SODIUM 10 MG TABLET PO (08:42)
[2023-07-12] MEDS: OSELTAMIVIR PHOSPHATE 30 MG CAPSULE PO ×2 (08:42→21:14)
[2023-07-12] MEDS: METOPROLOL SUCCINATE EXT REL 25 MG TABCR PO (08:43)
[2023-07-12] MEDS: METOPROLOL SUCCINATE EXT REL 50 MG TABCR PO (08:44)
[2023-07-12] MEDS: ENOXAPARIN 40 MG/0.4 ML SYRINGE SUB-Q (08:45)
[2023-07-12] MEDS: hydrOXYzine HCL 25 MG TABLET PO ×2 (08:47→21:14)
[2023-07-12] MEDS: ONDANSETRON INJ 4 MG/2 ML VIAL IV PUSH (09:37)
--- NOTE | 2023-07-12 16:40 | PM.IMPN ---
Progress Note: A&P Assessment and Plan (1) Acute kidney injury: Code(s): N17.9 - Acute kidney failure, unspecified Status: Acute (2) Sepsis: Code(s): A41.9 - Sepsis, unspecified organism Status: Acute (3) Influenza B: Code(s): J10.1 - Influenza due to other identified influenza virus with other respiratory manifestations Status: Acute (4) Dehydration: Code(s): E86.0 - Dehydration Status: Acute (5) Vasovagal syncope: Code(s): R55 - Syncope and collapse Status: Acute (6) Hyponatremia: Code(s): E87.1 - Hypo-osmolality and hyponatremia Status: Acute (7) Elevated LFTs: Code(s): R79.89 - Other specified abnormal findings of blood chemistry Status: Acute (8) Chronic obstructive pulmonary disease: Code(s): J44.9 - Chronic obstructive pulmonary disease, unspecified Status: Acute (9) Hypertension: Code(s): I10 - Essential (primary) hypertension Status: Acute (10) Tobacco abuse: Code(s): Z72.0 - Tobacco use Status: Acute Plan 83-year-old female who presented on 07/10/2023 with altered mental status. Patient had respiratory symptoms with cough nasal congestion lots of diarrhea nausea since past few weeks. While in the waiting room she had an episode of altered mental status and was staring off with minimally responsiveness. She was brought to the room and then had several episodes of emesis no tongue biting seizure-like activity bowel or bladder incontinence. She reports some shortness of breath but no chest pain. She was mildly hypotensive eyes was afebrile. Laboratory evaluation revealed hyponatremia of 125 mild acidosis SILVERIO with creatinine 1. CT abdomen and pelvis with chronic pyelonephritis but no acute abnormalities. CT brain without any acute abnormalities. Patient tested positive for influenza B. WBC platelet 192 lactic acid was elevated at 2.7. Lipase elevated at 354. Urine drug screen positive for cannabinoids. Urine sodium 29 without alcohol less than 10 influenza a RSV and COVID was negative. Chest x-ray showed minimal infiltrate or atelectasis suggested in the lower lung zones otherwise no active cardiopulmonary disease. Patient received IV fluids with improvement in her blood pressure and lactic acid level. No evidence of any bacterial infection and hence antibiotics on hold. Blood culture has been obtained. Influenza B treated with Tamiflu which will be continued. Hyponatremia likely related to dehydration p.o. intake nausea vomiting and diarrhea for the past several days along with chronic alcohol use. No prior levels available. Slowly Syncopal episode likely vasovagal. Seizure is a possibility prior several episodes of unexplained blackouts. She is monitored on telemetry to rule out any cardiac dysrhythmias. Echo with EF more than 70% grade 2 diastolic dysfunction moderately increased left ventricular wall thickness mild TR mild VT and EEG is ordered. CT head is negative Elevated LFTs: Viral infection versus chronic alcohol use. Hepatitis profile negative. SILVERIO mild resolved Anxiety depression home medication citalopram buspirone Chronic alcohol abuse [facility] protocol DVT prophylaxis Lovenox Code status full code Subjective Date/time seen: 07/12/23 16:40 Interval history: Feels a bit nauseous otherwise overall feeling better. No other new complaints Review of Systems Review of Systems: All systems reviewed & are unremarkable except as noted in HPI and below Exam Narrative: General: Mildly ill-appearing female in the semi-Richey position in bed. HEENT: Normocephalic, atraumatic. PERRL, EOMI. Sclera anicteric. Tacky mucous membranes. Neck: Supple. Respiratory: Respirations are nonlabored. Lung sounds are a bit diminished at the bases but otherwise clear to auscultation. Cardiovascular: Regular rate and rhythm with S1-S2. Gastrointestinal: Abdomen is soft, nontender, and
[2023-07-13] VITALS (9 sets, daily range): BP systolic 129–159; BP diastolic 83–113; PULSE 66–87; RESP 16–20; TEMP 36.8–36.9; O2SAT 96–97; BMI 28.5
[2023-07-13 06:53] LABS: Basophils Percent Auto 0.4 % (0.2-1.2); Eosinophils Percent Auto 0.8 % (0-4.4); Hematocrit 37.5 % (37.0-47.0); Hemoglobin 12.6 g/dL (12.0-15.0); Immature Granulocyte Absolute 0.01 K/mm3 (0.00-0.031); Immature Granulocyte Percent A 0.4 % (0-0.5); Lymphocytes Absolute Auto 1.01 K/mm3 (0.9-3.2); Lymphocytes Percent Auto 42.4 % (18.3-44.2); Mean Corpuscular HGB Conc 33.6 g/dl (32-36); Mean Corpuscular Hemoglobin 30.1 pg (26-34); Mean Corpuscular Volume 89.5 fl (80-100); Mean Platelet Volume 9.6 fl (7.4-10.4); Monocytes Absolute Auto 0.2 K/mm3 (0.1-0.6); Monocytes Percent Auto 9.7 % (2.6-8.5); Neutrophils Absolute Auto 1.1 K/mm3 (1.3-6.7); Neutrophils Percent Auto 46.3 % (45.5-73.1); Platelet Count Result 131 k/mm3 (150-375); Red Blood Count 4.19 M/mm3 (4.2-5.4); Red Cell Distribution Width 12.4 % (11.5-14.5); White Blood Count 2.4 K/mm3 (4.5-10.0)
[2023-07-13 07:09] LABS: Alanine Aminotransferase 45 U/L (6-35); Albumin Level 3.5 g/dL (3.5-5.1); Alkaline Phosphatase 99 U/L (38-126); Anion Gap 7 mmol/L (8-16); Aspartate Amino Transferase 46 U/L (14-36); Bilirubin,Total 0.4 mg/dL (0.2-1.3); Blood Urea Nitrogen 10 mg/dL (7-17); Calcium 8.5 mg/dL (8.4-10.2); Carbon Dioxide 19 mmol/L (22-30); Chloride 103 mmol/L (98-107); Estimated CRCL calculation 77 ml/min; Estimated Glomerular Filt Rate > 60; Glucose 89 mg/dL (65-110); Magnesium 1.8 mg/dL (1.6-2.3); Potassium 3.5 mmol/L (3.4-5.0); Sodium 129 mmol/L (137-145)
[2023-07-13] MEDS: ENOXAPARIN 40 MG/0.4 ML SYRINGE SUB-Q (09:33)
[2023-07-13] MEDS: CITALOPRAM HYDROBROMIDE 20 MG TABLET 40 MG PO (09:34)
[2023-07-13] MEDS: MONTELUKAST SODIUM 10 MG TABLET PO (09:34)
[2023-07-13] MEDS: METOPROLOL SUCCINATE EXT REL 25 MG TABCR PO (09:34)
[2023-07-13] MEDS: METOPROLOL SUCCINATE EXT REL 50 MG TABCR PO (09:34)
[2023-07-13] MEDS: busPIRone HCL 5 MG TABLET 15 MG PO (09:35)
[2023-07-13] MEDS: hydrOXYzine HCL 25 MG TABLET PO (09:38)
[2023-07-13] MEDS: OSELTAMIVIR PHOSPHATE 30 MG CAPSULE PO (09:44)
--- NOTE | 2023-07-13 11:38 | WPDNEUROLOGY ---
Neurology EEG Report General Information Date of Study: 07/13/23 TEST eeg DIAGNOSIS Seizure-like activity CONDITION OF RECORDING awake drowsy and sleep EEG NUMBER [id number] CLINICAL HISTORY Patient reports she came to the ER 3 days ago due to nausea dizziness and weakness and while in ER she had a seizure-like episode. EEG DESCRIPTION Basic resting occipital frequency consists of low voltage 9 to 11 hertz per 2nd alpha admixed with low-voltage 15 to 18 hertz per 2nd beta P during drowsiness low-voltage beta activity seen diffusely admixed with waxing and waning posterior alpha rhythm. Intermittent asymmetrical activities noted over the left hemisphere photic stimulation not done, hyperventilation not done. Non paroxysmal questionably focal and lateralizing. IMPRESSION Only questionably abnormal record due to the presence of the asymmetrical activity over the left hemisphere. This particular abnormality as per se is not diagnostic of seizure disorder but could be suggestive of underlying asymmetric and a repeat EEG of further evaluation recommended.
--- NOTE | 2023-07-13 12:44 | PM.DS ---
DS: Admitting Diagnosis Discharge Date 07/13/2023 Admitting Diagnosis Altered mental status DS: Discharge Diagnosis Discharge Diagnosis (1) Acute kidney injury: Code(s): N17.9 - Acute kidney failure, unspecified Status: Acute (2) Sepsis: Code(s): A41.9 - Sepsis, unspecified organism Status: Acute (3) Influenza B: Code(s): J10.1 - Influenza due to other identified influenza virus with other respiratory manifestations Status: Acute (4) Dehydration: Code(s): E86.0 - Dehydration Status: Acute (5) Vasovagal syncope: Code(s): R55 - Syncope and collapse Status: Acute (6) Hyponatremia: Code(s): E87.1 - Hypo-osmolality and hyponatremia Status: Acute (7) Elevated LFTs: Code(s): R79.89 - Other specified abnormal findings of blood chemistry Status: Acute (8) Chronic obstructive pulmonary disease: Code(s): J44.9 - Chronic obstructive pulmonary disease, unspecified Status: Acute (9) Hypertension: Code(s): I10 - Essential (primary) hypertension Status: Acute (10) Tobacco abuse: Code(s): Z72.0 - Tobacco use Status: Acute DS: Summary Hospital Course Hospital Course: 83-year-old female who presented on 07/10/2023 with altered mental status.? Patient had respiratory symptoms with cough nasal congestion lots of diarrhea nausea since past few weeks.? While in the waiting room she had an episode of altered mental status and was staring off with minimally responsiveness.? She was brought to the room and then had several episodes of emesis no tongue biting seizure-like activity bowel or bladder incontinence.? She reports some shortness of breath but no chest pain.? She was mildly hypotensive eyes was afebrile.? Laboratory evaluation revealed hyponatremia of 125 mild acidosis SILVERIO with creatinine 1.? CT abdomen and pelvis with chronic pyelonephritis but no acute abnormalities.? CT brain without any acute abnormalities.? Patient tested positive for influenza B.? WBC normal platelet 192 lactic acid was elevated at 2.7.? Lipase mildly elevated at 354.? Urine drug screen positive for cannabinoids.? Urine sodium 29 without alcohol less than 10 influenza a RSV and COVID was negative.? Chest x-ray showed minimal infiltrate or atelectasis suggested in the lower lung zones otherwise no active cardiopulmonary disease.? Patient received IV fluids with improvement in her blood pressure and lactic acid level.? No evidence of any bacterial infection and hence antibiotics on hold.? Blood culture has been obtained which remained negative to date.? Influenza B treated with Tamiflu which will be continued for total 5 days course.? Hyponatremia likely related to dehydration p.o. intake nausea vomiting and diarrhea for the past several days along with chronic alcohol use.? No prior levels available.? Slowly improving. Recheck at discharge in 1 week Syncopal episode likely vasovagal.? Seizure is a possibility prior several episodes of unexplained blackouts.? She is monitored on telemetry to rule out any cardiac dysrhythmias which remained unremarkable.? Echo with EF more than 70% grade 2 diastolic dysfunction moderately increased left ventricular wall thickness mild TR mild IL and EEG is ordered.? CT head is negative. EEG with questionably abnormal record due to presence of asymmetric a activity over the left hemisphere. This particular abnormalities per se not diagnostic of seizure disorder but could represent underlying asymmetric. Repeat EEG recommended will have her follow up with Neurology as outpatient basis. Elevated LFTs:? Viral infection versus chronic alcohol use.? Hepatitis profile negative.? SILVERIO mild resolved Anxiety depression home medication citalopram buspirone Chronic alcohol abuse [facility] protocol DVT prophylaxis Lovenox Code status full code Time Spent with Patient Time attestation: Total time spent providing and/or coordinating discharge servic
[2023-07-14 08:54] LABS: Osmolality, Urine 493 mOsm/kg (50-1200)
== END 2023-07-13 14:00 | disposition home or self-care (01) | DRG 720 ==
LOC: ANHED 14:20 → ANH3MEDSUR 17:45
PROVIDERS: Physician Assistant; Admitting Provider General Practice; Emergency Provider Emergency Medicine; PCP Nurse Practitioner Family; Visit Provider Internal Medicine
DX: A41.9 Sepsis, unspecified organism (principal); F41.9 Anxiety disorder, unspecified; J44.9 Chronic obstructive pulmonary disease, unspecified; I10 Essential (primary) hypertension; E87.1 Hypo-osmolality and hyponatremia; E86.0 Dehydration; I95.9 Hypotension, unspecified; F10.10 Alcohol abuse, uncomplicated; F17.210 Nicotine dependence, cigarettes, uncomplicated; R41.0 Disorientation, unspecified; N17.9 Acute kidney failure, unspecified; J10.1 Influenza due to other identified influenza virus with other respiratory manifestations; Z20.822 Contact with and (suspected) exposure to COVID-19; Z88.0 Allergy status to penicillin; Z90.710 Acquired absence of both cervix and uterus
CPT/HCPCS: 36415; 70450; 71045; 74177; 80048; 80053; 80074; 80307; 82550; 82570; 83605; 83690; 83735; 83930; 83935; 84295; 84300; 84443; 85025; 85027; 85610; 85730; 87040; 87637; 93306; 94640; 95816; 96361; 96372; 96374; 96375; 97161; 99285; A9270; G0379; J1650; J2405; J7030; Q9967

== ENCOUNTER 2024-10-31 22:57 | Inpatient (IN) | payer OTHER, SELFPAY ==
--- NOTE | ~2024-10-31 | XR_ITS ---
EXAMINATION: XR chest 1V portable Exam Date/Time: 10/31/2024 23:15 CDT HISTORY: chest pain SOB Comparison: 07/10/2023. RESULT: Lines, tubes, and devices: None. Lungs and pleura: Clear. Calcified granuloma. Cardiomediastinal silhouette: Stable. Other: No acute osseous or upper abdominal finding. IMPRESSION: No acute cardiopulmonary process. Reviewed, dictated and finalized at location [facility].
[2024-10-31 22:58] VITALS: BP 199/111; PULSE 72; RESP 23; O2SAT 100
[2024-10-31 23:03] VITALS: O2SAT 100
[2024-10-31 23:04] VITALS: PULSE 79
--- NOTE | 2024-10-31 23:12 | ECG_ITS ---
Test Date: 2024-10-31 23:23:55 Measurements Intervals [place] Rate: 74 P: 64 NH: 215 QRS: 49 QRSD: 89 T: 66 QT: 415 QTc: 462 Interpretive Statements SINUS RHYTHM WITH FIRST DEGREE AV BLOCK CANNOT EXCLUDE PREVIOUS SEPTAL INFARCTION ABNORMAL ECG No previous ECG available for comparison Electronically Signed On 11-01-2024 10:11:42 CDT by Tom Stewart M.D.
[2024-10-31 23:31] LABS: Hematocrit 34.8 % (37.0-47.0); Hemoglobin 12.3 g/dL (12.0-15.0); Immature Granulocyte Percent A 0.5 % (0-0.5); Lymphocytes Absolute Auto 1.77 K/mm3 (0.9-3.2); Mean Corpuscular HGB Conc 35.3 g/dl (32-36); Mean Corpuscular Hemoglobin 30.8 pg (26-34); Mean Corpuscular Volume 87.2 fl (80-100); Nucleated Red Blood Cells Absolute Auto 0.000 K/mm3 (0.0-0.012); Nucleated Red Blood Cells Perc 0.0 % (0.0-0.2); Platelet Count Result 182 k/mm3 (150-375); Red Blood Count 3.99 M/mm3 (4.2-5.4); White Blood Count 6.0 K/mm3 (4.5-10.0)
[2024-10-31 23:48] LABS: INR 0.9; Partial Thromboplastin Time 29.4 Seconds (22.3-36.8); Prothrombin Time 12.7 Seconds (11.1-14.7)
[2024-10-31 23:53] LABS: Alanine Aminotransferase 45 U/L (6-35); Albumin Level 4.4 g/dL (3.5-5.1); Alkaline Phosphatase 111 U/L (38-126); Anion Gap 9 mmol/L (4-12); Aspartate Amino Transferase 65 U/L (14-36); Bilirubin,Total 0.3 mg/dL (0.2-1.3); Blood Urea Nitrogen 5 mg/dL (7-17); Calcium 8.6 mg/dL (8.4-10.2); Carbon Dioxide 21 mmol/L (22-30); Chloride 89 mmol/L (98-107); Estimated CRCL calculation 67 ml/min; Estimated Glomerular Filt Rate > 60; Glucose 87 mg/dL (65-110); Lipase 183 U/L (23-300); Potassium 4.5 mmol/L (3.4-5.0); Sodium 119 mmol/L (137-145); Total Protein 7.6 g/dL (6.3-8.2)
[2024-10-31 23:56] LABS: NT Pro B Type Natriuretic Pept 4650 pg/mL (19.9-100); Troponin I 0.016 ng/mL (0.000-0.034)
[2024-11-01] VITALS (16 sets, daily range): BP systolic 156–220; BP diastolic 75–116; PULSE 66–86; RESP 16–22; TEMP 36.6–37.2; O2SAT 96–100; BMI 25.2
--- NOTE | 2024-11-01 00:06 | ED_ITS ---
HPI - Chest Pain General Chief Complaint: Chest Pain Stated Complaint: LEFT LUNG PAIN Time Seen by Provider: 10/31/24 23:11 History of Present Illness HPI narrative: Patient is a 54-year-old female who presents to the emergency department this evening complaining of left-sided lung pain for the past week. Denies any shortness of breath, any chest pain, nausea vomiting or abdominal pain. Patient does have a history of alcoholism and is currently drunk. Admits to drinking at least 3-6 beers per day. Admits that she has had at least 7 or more drinks this evening. She does have a history of asthma and COPD and states that she has a history of a cyst in her lungs. Denies any additional symptoms or concerns at this time. Denies any recent falls or trauma. Related Data Allergies Allergy/AdvReac Type Severity Reaction Status Date / Time latex Allergy Unknown SWELLING Verified 05/20/24 13:53 ON CONTACT Penicillins Allergy Unknown SWELLING, Verified 05/20/24 13:53 PROBLEMS BREATHING bacitracin AdvReac Intermediate SWELLING Verified 05/20/24 13:53 AND PAIN neomycin AdvReac Intermediate SWELLING Verified 05/20/24 13:53 AND PAIN polymyxin B AdvReac Intermediate SWELLING Verified 05/20/24 13:53 AND PAIN morphine AdvReac Unknown VOMITING Verified 05/20/24 13:53 Grass Allergy Unknown HIVES Uncoded 05/20/24 13:53 Review of Systems 2 Review of Systems: All systems are reviewed and are negative unless stated otherwise in the HPI. [facility] Past Medical History Medical History Dizziness Chronic obstructive pulmonary disease Irritable bowel syndrome Chronic rhinitis Tobacco abuse Hypertension Anxiety Asthma Seasonal allergies Surgical History Surgical History History of section 1988 and 1997 History of hysterectomy (2019) History of colonoscopy Family History Family History Grandparent No problems noted. Grandparent Cancer Social History Social History Social History: Surrogate medical decision maker: Moe Jeff, significant other. Code status: Full code. Smoking packs per day: 0.5 Smoking cigarettes per day: 10.0 Years smoked: 40 Smoking pack-years: 20.00 Smoking status: Current every day smoker Tobacco type: cigarettes Alcohol intake: current Drinks per week: 12 Alcohol use details: 3 to 6 beers a day. Substance use: current Substance use type: marijuana Do You Feel Safe in your Home?: Yes Lack of Transportation: No Lack of Food: Never True Current Housing: Decline to Answer Concerned About Future Housing: No Difficulty Paying Gas/Electric Bills: No Difficulty Paying for Meds: No Currently Unemployed: YES Education: High School Diploma/GED Difficulty w/ Childcare or Family Care: No Spiritual care concerns: No Exam 2 Narrative: General: Alert, awake, afebrile, in no acute distress. HEENT: PERRL, no rhinorrhea, no post nasal drip, oropharynx clear. Neck: Trachea midline, no JVD, no lymphadenopathy. Cardiovascular: Regular rate and rhythm, no murmurs, rubs or gallops, no peripheral edema. Respiratory: Clear to auscultation bilaterally, no tachypnea, no wheezing, no rhonchi, no rubs, no respiratory distress. Abdomen: Soft, nontender, nondistended, no rebound, no guarding, no peritoneal signs. Musculoskeletal: No joint swelling or deformity, normal muscle tone, point tenderness to patient's left lower posterior ribs, no overlying ecchymosis or evidence of trauma. Skin: No rashes or petechia, no signs of infection. Psychiatric: Alert and oriented, normal behavior and judgment for situation. Neurological: Alert and oriented to person, place, and time. Follows all commands. No focal deficits, speech is clear and fluent. Course Vital Signs Vital signs: Vital Signs Pulse Rate 72 10/31/24 22:58 Respiratory Rate 23 H 10/31/24 22:58 Blood Pressure 199/111 H 10/31/24 22:58 Pulse Oximetry 100 10/31/24 22:58 Oxygen Delivery Room Air 10/31/24 22:58 Pulse Rate 79 10/31/24 23:04 Respiratory Rate 23 H 10/31/24 22:58 Blood Pressure 199/111 H 10/31/24 22:58 Pulse Oximetry 100 10/31/24 23:03 Oxygen Delivery Room Air 10/31/24 23:03 MDM - Chest Pain MDM Narrative Medical decision making narrative: The patient was evaluated by myself in the emergency department. History is obtained from patient who is an independent historian and physical exam was performed. External medical records were reviewed at this time. IV was established and pertinent tests were ordered. Patient was administered 1 L IV fluid bolus with normal saline. EKG was obtained which revealed sinus rhythm rate of 74 beats per minute evidence of acute ischemia. EKG was independently interpreted by me and is currently pending official cardiology read. Laboratory results obtained revealing a sodium level of 119 and mild transaminitis with an AST of 65 and an ALT of 45 otherwise unremarkable. Urinalysis currently pending. Patient's sodium level has been ranging between 124 and 129 since June of 2023. Imaging studies obtained included CXR which was independently interpreted by me revealing no acute cardiopulmonary process, which is pending final radiology interpretation. Differential diagnosis considerations include musculoskeletal strain, rib fracture, pneumonia, acute viral syndrome, dehydration, electrolyte derangements. Comorbidities impacting this visit include history of alcohol abuse. I have evaluated and discussed social determinants of health with the patient that could potentially impact subsequent diagnosis and treatment plans. On repeat assessment of the patient, reevaluation revealed that the patient is doing well and is in no acute distress. Patient symptoms have improved since she arrived to our emergency department. Repeat vital signs were all reviewed and noted to be stable. Differential diagnosis and treatment plan were discussed with the patient at bedside. Patient agrees with discussion and after shared medical decision making agrees with discharge. All questions were answered to the patient's satisfaction. Case was discussed with the on-call fine grader Dr. Armando at 2350 who did not have any additional recommendations. Patient was continued on maintenance fluids at a rate of 100 cc/hour. Will recheck her sodium level 4 hours from the initial blood draw. This is likely chronic secondary to patient's daily alcohol consumption, specifically the year. Case was discussed with the on-call hospitalist Dr. Wright at 0015 who accepted IMU admission. Lab Data 10/31/24 23:16 10/31/24 23:16 Labs: Lab Results 10/31/24 10/31/24 Range/Units 23:16 23:57 WBC 6.0 (4.5-10.0) K/mm3 RBC 3.99 L (4.2-5.4) M/mm3 Hgb 12.3 (12.0-15.0) g/dL Hct 34.8 L (37.0-47.0) % MCV 87.2 (80-100) fl MCH 30.8 (26-34) pg MCHC 35.3 (32-36) g/dl RDW 13.0 (11.5-14.5) % Plt Count 182 (150-375) k/mm3 MPV 8.7 (7.4-10.4) fl Immature Gran % (Auto) 0.5 (0-0.5) % Neut % (Auto) 58.1 (45.5-73.1) % Lymph % (Auto) 29.4 (18.3-44.2) % [place] % (Auto) 10.0 H (2.6-8.5) % Eos % (Auto) 1.0 (0-4.4) % Baso % (Auto) 1.0 (0.2-1.2) % Lymph # (Auto) 1.77 (0.9-3.2) K/mm3 [place] # (Auto) 0.6 (0.1-0.6) K/mm3 Eos # (Auto) 0.1 (0-0.3) K/mm3 Baso # (Auto) 0.1 (0.0-0.1) K/mm3 Abs Immat Gran (auto) 0.03 (0.00-0.031) K/mm3 Absolute Neuts (auto) 3.5 (1.3-6.7) K/mm3 Absolute Nucleated RBC 0.000 (0.0-0.012) K/mm3 Nucleated RBC % 0.0 (0.0-0.2) % PT 12.7 (11.1-14.7) Seconds INR 0.9 APTT 29.4 (22.3-36.8) Seconds Sodium 119 L* (137-145) mmol/L Potassium 4.5 (3.4-5.0) mmol/L Chloride 89 L (98-107) mmol/L Carbon Dioxide 21 L (22-30) mmol/L Anion Gap 9 (4-12) mmol/L BUN 5 L D (7-17) mg/dL Creatinine 0.80 (0.7-1.0) mg/dL Estim Creat Clear Calc 67 ml/min Estimated GFR > 60 (59 - ) Glucose 87 (65-110) mg/dL Serum Osmolality Pending Calcium 8.6 (8.4-10.2) mg/dL Total Bilirubin 0.3 (0.2-1.3) mg/dL AST 65 H (14-36) U/L ALT 45 H (6-35) U/L Alkaline Phosphatase 111 (38-126) U/L Troponin I 0.016 (0.000-0.034) ng/mL NT-Pro-B Natriuret Pep 4650 H (19.9-100) pg/mL Total Protein 7.6 (6.3-8.2) g/dL Albumin 4.4 (3.5-5.1) g/dL Lipase 183 (23-300) U/L Urine Color Pending Urine Appearance Pending Urine pH Pending Ur Specific Shaniko Pending Urine Protein Pending Urine Glucose (UA) Pending Urine Ketones Pending Ur Blood (Man) Pending Urine Nitrate Pending Urine Bilirubin Pending Urine Urobilinogen Pending Leukocyte Esterase Rfl Pending Urine Osmolality Pending Ur Random Sodium Pending Ur Random Urea Pending Urine Creatinine Pending Urine Total Volume Pending Ur Uric Acid 24 Hr Pending Urine Opiates Screen Pending Urine Methadone Screen Pending Ur Barbiturates Screen Pending Ur Phencyclidine Scrn Pending Ur Amphetamine Screen Pending U Benzodiazepines Scrn Pending Urine Cocaine Screen Pending U Cannabinoids Screen Pending Ethyl Alcohol 244 (<10) mg/dL Discharge Plan Discharge Clinical Impression: Acute hyponatremia, Alcohol intoxication Patient Disposition: Still a Patient Condition: Improved Patient Language: Cambodian Prescriptions: No Action lidocaine [Lidoderm] 5 % adhesive patch,medicated 1 patch topical DAILY Qty: 30 5RF Rx Instructions: leave on most painful area for up to 12 hrs metoprolol succinate 50 mg tablet extended release 24 hr 50 mg PO DAILY Qty: 90 3RF metoprolol succinate 25 mg tablet extended release 24 hr 25 mg PO DAILY Qty: 90 3RF Rx Instructions: take with metoprolol 50mg to equal 75mg daily albuterol sulfate 90 mcg/actuation HFA aerosol inhaler 2 puff INHALATION Q4-6H PRN (Reason: shortness of breath or wheezing) Qty: 18 11RF buspirone 15 mg tablet 15 mg PO BID Qty: 180 3RF citalopram 40 mg tablet 40 mg PO DAILY Qty: 90 3RF hydroxyzine HCl 25 mg tablet 25 mg PO BID PRN (Reason: anxiety) Qty: 180 3RF montelukast [Singulair] 10 mg tablet 10 mg PO DAILY Qty: 90 3RF Follow-up/Referrals: Jenae Amaya CONTACT ASSEMBLER [Primary Care Provider] - Time of Disposition: 00:12
[2024-11-01] MEDS: SODIUM CHLORIDE 0.9% IV 1,000 ML 999 ML IV CONT (00:16)
[2024-11-01 00:26] LABS: Add Urine Microscopic? NO; Appearance Urine Clear (Clear); Glucose Urine UA Negative (Negative); Leukocyte Esterase Ur Negative LEU/UL (Negative); Nitrate Urine Negative (Negative); Specific Grav Ur 1.003 (1.001-1.035)
--- OUTSIDE RECORDS SUMMARY | 2024-11-01 00:26 | XMS_ITS | Clinical Summary ---
Author Organization [facility] [address] Address [address] [place] [address] Care Team Providers Care Political Cartoonist Name Role Phone Carlos Antonio DO Primary Care Provider [phone] Social History Tobacco Use Types Packs/Day Years Used Date Smoking Tobacco: Never Assessed Personal Safety Answer Date Recorded Getting School Help Needed Not on file 07/12 Comments Unknown Sex and Gender Information Value Date Recorded Sex Assigned at Not on file Legal Sex Female 11:19 AM CDT Gender Identity Not on file Sexual Orientation Not on file Plan of Treatment Not on file Insurance Care Teams Political Cartoonist Relationship Specialty Start Date End Date Carlos Antonio DO PCP - General Internal Medicine 12/16/16
--- OUTSIDE RECORDS SUMMARY | 2024-11-01 00:26 | XMS_ITS ---
Author Organization Unknown Plan of Treatment Description Planned Activity Planned Timing [facility] is a provider organization who partners directly with Health Plans and provides integrated primary care, behavioral health, and perinatal social worker for an attributed population Letter encounter to patientTelephone encounter Oct 13, 2024Jul 2024 Patient Care team information Name Category Status Period Participants - - Proposed period not known -
--- OUTSIDE RECORDS SUMMARY | 2024-11-01 00:26 | XMS_ITS | Clinical Summary ---
Author Organization [facility] Address [address] [place] [id number] Care Team Providers Care Pai Gow Dealer Name Role Phone Unavailable Primary Care Provider Unavailabl e Social History Tobacco Use Types Packs/Day Years Used Date Smoking Tobacco: Never Assessed Comments Unknown Sex and Gender Information Value Date Recorded Sex Assigned at Not on file Legal Sex Female 7:01 PM CDT Gender Identity Not on file Sexual Orientation Not on file Plan of Treatment Health Maintenance Due Date Last Done Comments Cervical Cancer Screening Pa p Smear (Age 30 to 64) Every 3 Years 1969 Colorectal Cancer Screening Colonoscopy (10 Years) 1969 Annual Physical 1972 Hepatitis C 1987 DTaP, Tdap and Td Vaccines ( 1 - Tdap) 1988 Hepatitis B Vaccines (1 of 3 - 19+ 3-dose series) 1988 Cervical Cancer Screening Pa p with HPV Testing (Age 30 to 64) Every 5 Years 1999 Cervical Cancer Screening with HPV 1999 Mammogram Screening 2009 Pneumococcal Vaccine: 50+ Ye ars (1 of 1 - PCV) 2019 Zoster Vaccines (1 of 2) 2019 COVID-19 Vaccine (2023-2 5 season) 2023 Meningococcal B Vaccine Aged Out No l onger eligible based on patient's age to complete this topic Meningococcal Vaccine Aged Out No tiffanie jovon eligible based on patient's age to complete this topic RSV Immunizations Under 20 Months Aged Out No longer eligible based on patient's age to complete this topic
--- OUTSIDE RECORDS SUMMARY | 2024-11-01 00:26 | XMS_ITS | Clinical Summary ---
Author Organization [facility] [employer] Address [facility] [place] [address] Care Team Providers Care Director Private Name Role Phone Carlos Antonio DO Primary Care Provider [phone] Source Comments [facility] [employer],non-owned Affiliates and Associated Physician Practices is amultiple site organization consisting of ambulatory clinics and hospital sitesin [place], [place] and [place]. This disclosure is being madepursuant to the Care Everywhere program and may not contain all information available regarding this patient. Last updated 18.[facility] [employer] Allergies Active Allergy Reactions Criticality Noted Date Comments Penicillins Anaphylaxis High 09/10/2020 Morphine Vomiting 09/10/2020 Medications * Be aware that medications may not be up to date on this document. Alwaysverify current medications with the patient. citalopram (CELEXA) 40 MG tablet Take 1 tablet by mouth every 24 hours Active albuterol HFA (PROVENTIL;VENT GERMAN;PROAIR) 108 (90 Base) MCG/ACT inhaler Inhale 2 puffs by mouth every 4 hours as needed 06/27/2020 Active hydrOXYzine hcl (ATARAX) 25 MG tablet Take 1 tablet by mouth 2 times daily Active Progesterone 100 MG capsule Take 1 capsule by mouth once daily Active Family History Medical History Relation Name Comments Cancer - Breast Cousin Cancer - Ovarian Maternal Aunt Cancer - Pancreatic Paternal Uncle Relation Name Status Comments Cousin Maternal Aunt Paternal Uncle Social History Tobacco Use Types Packs/Day Years Used Date Smoking Tobacco: Some Days Cigarettes Smokeless Tobacco: Never Comments:6-8 cigarettes per day Comments Unknown Sex and Gender Information Value Date Recorded Sex Assigned at Not on file Legal Sex Female 4:07 AM CDT Gender Identity Not on file Sexual Orientation Not on file Last Filed Vital Signs Vital Sign Reading Time Taken Comments Blood Pressure 152/98 09/10/2020 8:41 AM CDT Pulse 96 09/10/2020 8:41 AM CDT Temperature 36.8 C (98.3 F) 09/10/2020 8:41 AM CDT Respiratory Rate - - Oxygen Saturation 95% 09/10/2020 8:41 AM CDT Inhaled Oxygen Concentration - - Weight 83.7 kg (184 lb 8 oz) 09/10/2020 8:41 AM CDT Height 170.2 cm (5' 7) 09/10/2020 8:41 AM CDT Body Mass Index 28.9 09/10/2020 8:41 AM CDT Plan of Treatment Health Maintenance Due Date Last Done Comments COLOGUARD (AGES 45-75) - COL ON CA SCREENING 1969 COLON MONITORING 1969 COLONOSCOPY - COLON CA SCREENING 1969 CT COLONOGRAPHY - COLON CA SCREENING 1969 Colorectal Cancer Screening 1969 FIT - COLON CA SCREENING 1969 FLEX SIG - COLON CA SCREENING 1969 LIPID TESTING 1969 MAMMOGRAM 1969 HIV SCREENING 1984 HEPATITIS C SCREENING 03/02/1987 DTAP/TDAP/TD VACCINES (1 - Tdap) 1988 HEPATITIS B VACCINE (1 of 3 - 19+ 3-dose series) 1988 PNEUMOCOCCAL VACCINE 50+ (1 of 2 - PCV) 1988 ZOSTER VACCINE (1 of 2) 2019 SCREENING FOR DIABETES 09/10/2020 COVID-19 VACCINE (1 - 2023-2 5 season) 2023 DEPRESSION SCREENING 04/20/2024 INFLUENZA VACCINE (#1) 2024 HIB VACCINE Aged Out No longer eligi ble based on patient's age to complete this topic HPV VACCINE Aged Out No longer eligi ble based on patient's age to complete this topic MENINGOCOCCAL (Group B) VACC INE SHARED DECISION-MAKING Aged Out No longer eligibl e based on patient's age to complete this topic MENINGOCOCCAL GROUPS A/C/Y/W VACCINE Aged Out No longer eligible b ased on patient's age to complete this topic Insurance [facility] Care Teams Director Private Relationship Specialty Start Date End Date Cralos Antonio DO PCP - General 08/28/20
--- OUTSIDE RECORDS SUMMARY | 2024-11-01 00:26 | XMS_ITS | Referral Summary ---
Author Organization [facility] [address] Address [address] [place] [address] Care Team Providers Care Access Lead Name Role Phone Carlos Antonio DO Primary Care Provider [phone]- [phone] Social History Tobacco Use Types Packs/Day Years [...] Treatment Not on file Insurance Care Teams Access Lead Relationship Specialty Start Date End Date Carlos Antonio DO PCP - General Internal Medicine 12/16/16
--- OUTSIDE RECORDS SUMMARY | 2024-11-01 00:26 | XMS_ITS | Data Portability ---
Author Organization [facility] Address [address] [place] [address] [place] [address] Care Team Providers Care Records Manager Name Role Phone WENDY THOMPSON Primary Care Provider Assessment Encounter Date Assessment Date Assessment LastModified by Organization Details LastModified Time 02/27/2020 02/27/2020 Annual gynecological exam performed. Patient will come back in a year unless there are new symptoms. [email or web address] Not available 02/27/2020 11:06:05 07/17/2020 07/17/2020 Time spent in visit is a total of 26 mins with at least 50% of visit consisting of counseling and review of plan of care. Additional precautionary measures were taken to minimize potential exposure to the Covid-19 virus during this patient s visit, including available hand criminal court judge upon arrive, temperature check and being asked a series of screening questions. All staff wore face coverings during this encounter, as well as provided additional cleaning and sanitizing of all surfaces, including counter-tops, pens, chairs, door handles, light switches, etc, prior to and following the patient s visit. [email or web address] Not available 07/17/2020 13:23:47 Plan of Treatment Reminders Order Date Submit Date Provider Last Modified By Organization Details Last Modified Time Details Appointments None recorded. Lab None recorded. Referral None recorded. Procedures None recorded. Surgeries None recorded. Imaging US, breast, unilateral 2020 021 [facility], [address], [place], [address], 05:00:47 MAMMO, diagnostic , digital, bilateral 2020 021 [facility], [address], [place], [address], 1 10:57:28 Medication Orders citalopram 40 mg tablet 2020 021 [facility], [place], [address], 1 12:57:58 Celexa 40 mg tablet 2019 [email or web address] Not available 0 11:04:15 Prometrium 100 mg capsule 2019 ATHENAFAX Not available 0 12:01:34 Celexa 20 mg tablet 2019 [email or web address] Not available 0 11:01:38 hydroxyzin e HCl 25 mg tablet 2019 020 [facility] Not available 0 11:57:36 albuterol sulfate HFA 90 mcg/actuat ion aerosol inhaler 2019 [facility] Not available 0 12:01:37 Patient TargetsNo targets recorded. Patient Instructions Encounter Date Encounter Id Patient Instructions Last Modified By Organization Details Last Modified Time 02/27/2020 [id number] [email or web address] Not available 11:39:48 03/26/2020 [id number] [email or web address] Not available 10:38:08 Reason for Referral None Reported. Results Created Date Observation Date Name Description Value Unit Range Abnormal Flag Note LastModifiedBy Organization Detail LastModifiedTime 08/14/19 21 MAMMO , diagn ostic , digit al, bilat eral No observ ation record ed. [facility] [address], [place], [address], 08/22/2020 16:34:58 Result Notes None recorded. 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 229105809 Active 2015 Unspecifi ed menopausa l and perimenop ausal disorder; Practice ID: 0001 Not Available [facility] 0 17:42:47 Cyst of ovary 32955819 Active 2016 Unspecifi ed ovarian cyst, left side;Prac michoacano ID: 0001 Not Available [facility] 0 17:42:47 Pelvic and perineal pain 859813575 Active 2017 Pelvic and perineal pain;Prac michoacano ID: 0001 Not Available [facility] 0 17:42:47 Finding of menstrual bleeding Active 2017 Excessive and frequent menstruat ion with regular cycle;Pra ctice ID: 0001 Not Available [facility] 0 17:42:47 Uterine leiomyoma 35952562 Active 2018 Leiomyoma of uterus, unspecifi ed;Practi ce ID: 0001 Not Available [facility] 0 17:42:47 Anemia 967267315 Active 2018 Anemia, unspecifi ed;Practi ce ID: 0001 Not Available [facility] 0 17:42:47 Pain in female genitalia Active 2018 Dysmenorr hea, unspecifi ed;Practi ce ID: 0001 Not Available [facility] 0 17:42:48 Hernia of abdominal cavity 57435885 Active 2018 Unspecifi ed abdominal hernia without obstructi on or gangrene; Practice ID: 0001 Not Available [facility] 0 17:42:48 Uterus finding Active 2018 Acquired absence of both cervix and uterus;Pr actice ID: 0001 Not Available [facility] 0 17:42:48 Finding of sensation of epididymi s 410957529 Active 2018 Oth postproce dural complicat ions and disorders of sys;Recor ded Elsewhere : No Locati on: [facility] So urce: EHR Chron ic: N Practic e ID: 0001 Bill able Time: 02:00:00 PM Not Available [facility] 0 17:42:48 Left lower quadrant pain 190370747 Active 2016 Left lower quadrant pain;Prac michoacano ID: 0001 Not Available [facility] 0 17:42:49 Abnormal uterine bleeding 00394781710 100 Active 2018 Other specified abnormal uterine and vaginal bleeding; Recorded Elsewhere : No Locati on: [facility] So urce: EHR Chron ic: N Practic e ID: 0001 Bill able Time: 04:00:00 PM Not Available [facility] 0 17:42:49 Cyst of ovary Active 2017 Unspecifi ed ovarian cyst, unspecifi ed side;Jesús rded Elsewhere : No Locati on: [facility] So urce: EHR Chron ic: N Practic e ID: 0001 Bill able Time: 02:01:42 PM Not Available [facility] 0 17:42:[address] Concept Active 2018 Other complicat ion of procedure , initial encounter ;Recorded Elsewhere : No Locati on: [facility] So urce: EHR Chron ic: N Practic e ID: 0001 Bill able Time: 02:00:00 PM Not Available [facility] 0 17:42:49 Problem Notes None recorded. Procedures Surgical History Date Name Laterality Status Provider Name and Address Organization Details Recorded Time 01/26/20 19 Date of Last Pap Smear completed [facility] 06/22/2020 10:26:31 Removal of fallopian tube completed [facility] 02/27/2020 11:09:26 Dilation and Curettage completed [facility] 02/27/2020 11:09:31 Total Hysterectomy completed [facility] 02/27/2020 11:09:37 Imaging Results None recorded. Procedure Notes None recorded. Medical Equipment None Reported. Allergies Allergen ID Allergen Name Allergen Category Reaction Reaction Severity Criticality Documentation Date Start Date Code Code System Note Provider Name and Address Organization Details Recorded Time 2651 Product containin g penicilli n (product) medicatio n Not available Not available Not available 02/27/2020 14029 [id number] ELVIRA Ceballos [place], [place] - [facility] 0 11:06:28 Medications Name Sig Start Date Stop Date Status Note LastModified by Organization Details LastModified Time Colace 100 mg capsule take 1 capsule by oral route every day at bedtime as needed 07/17 completed Prescrib ed Elsewher e: No Locat ion: [facility] odify By: lisa cat Enco unter DateTime : 01/26/20 19 04:00:00 PM Not Available Not Available Not Available citalopra m 40 mg tablet Take 1 tablet every day by oral route for 90 days. 2020 active Not Available Not Available Not Avai lable Zofran 4 mg tablet take 2 tablet by oral route 2 times every day as needed 07/17 completed Prescrib ed Elsewher e: No Locat ion: [facility] odify By: lisa cat Enco unter DateTime : 01/26/20 19 04:00:00 PM Not Available Not Available Not Available citalopra m 20 mg tablet Take 1 tablet every day by oral route. 03/26 completed Not Available Not Available Not Available Prozac 20 mg capsule take 1 capsule by oral route every day in the morning 05/11 completed Prescrib ed Elsewher e: Yes Loca tion: [facility] odify By: [email or web address] Liz ncounter DateTime : 09/20/19 16 11:15:00 AM Not Available Not Available Not Available estradiol 2 mg tablet active Not Available Not Available Not Available hydroxyzi ne HCl 25 mg tablet TAKE 1 TABLET BY MOUTH TWICE DAILY NEEDED active Not Available Not Available No t Available metoprolo l succinate ER 25 mg tablet,ex tended release 24 hr TAKE 1 2 (ONE HALF) TABLET BY MOUTH ONCE DAILY active Not Available Not Available No t Available albuterol sulfate HFA 90 mcg/actua tion aerosol inhaler INHALE 2 PUFFS BY MOUTH EVERY 4 TO 6 HOURS active Not Available Not Available No t Available progester one micronize d 100 mg capsule 1 capsule nightly PO active Not Available Not Available No t Available nabumeton e 500 mg tablet take 1 tablet by oral route 2 times every day prn for menstrua l pain. 07/17 completed Prescrib ed Elsewher e: No Locat ion: [facility] odify By: lisa shelton Enco unter DateTime : 01/26/20 04:00:00 PM Not Available Not Available Not Available iron 325 mg (65 mg iron) tablet take 1 tablet by oral route every day with orange juice on empty stomach. 07/17 completed Prescrib ed Elsewher e: No Locat ion: [facility] odify By: lisa shelton Enco unter DateTime : 01/26/20 04:00:00 PM Not Available Not Available Not Available Zofran 02/26 completed Not Available Not Available Not Available iron 02/26 completed Not Available Not Available Not Available Colace 02/26 completed Not Available Not Available Not Available nabumeton e 02/26 completed Not Available Not Available Not Available Vitals Date Recorded Body height Body mass index (BMI) Body weight Systolic And Diastolic Systolic And Diastolic Provider Name and Address Organization Details Last Updated DateTime 07/17/2020 170.18 cm 28.2 kg/m2 21126.63 g 172/113 mm[Hg] 170/100 mm[Hg] Guille Vaca [facility] 12:52:40 Date Recorded Systolic And Diastolic Provider Name and Address Organization Details Last Updated DateTime 02/27/2020 140/88 mm[Hg] Chelo Abdalla, [facility]- [address], [place], [address], [facility] 02/27/2020 14:58:59 Date Recorded Body height Body mass index (BMI) Body weight Provider Name and Address Organization Details Last Updated DateTime 02/27/2020 170.18 cm 26.2 kg/m2 09967.93 hazel Ceballos [facility] 02/27/2020 11:20:35 Date Recorded Systolic And Diastolic Provider Name and Address Organization Details Last Updated DateTime 03/26/2020 130/82 mm[Hg] Chelo Abdalla, [facility]- [address], [place], [address], [facility] 03/26/2020 10:37:51 Date Recorded Body height Body mass index (BMI) Body weight Provider Name and Address Organization Details Last Updated DateTime 03/26/2020 170.18 cm 26.3 kg/m2 07735.52 hazel Ceballos [facility] 03/26/2020 10:15:22 Social History None recorded. Functional Status None recorded. Mental Status None recorded. Family History Relationship Description Onset Age of this Age Resolved Age Notes LastModified by Organization Details LastModified Time Mother Disorder of thyroid gland [email or web address] Not available 2019 11:07:36 Father Heart disease [email or web address] Not available 2019 11:08:04 Father Hypercholest erolemia [email or web address] Not available 2019 11:08:13 Father Carcinoma in situ of lung [email or web address] Not available 12/2019 11:08:22 Father Hypertensive disorder [email or web address] Not available 2019 11:08:31 Maternal Grandfather Malignant tumor of colon [email or web address] Not available 2019 11:08:41 Maternal Grandfather Diabetes mellitus [email or web address] Not available 2019 11:08:49 Maternal Aunt Suspected cervical cancer [email or web address] Not available 2019 11:09:05 Maternal Aunt Malignant neoplasm of ovary [email or web address] Not available 2019 11:09:13 Notes:Father: Heart disease, Cancer, lung, Hypertension, Hyperlipidemia Maternal aunt: Cancer, cervical, Cancer, ovarian Maternal grandfather: Cancer, colon, Diabetes mellitus Mother: Thyroid disease Medical History Condition Response Asthma Y Anemia Y Gynecological History Statement/Question Response Date of Last Pap Smear 01/25/2019 Current Control Method None Desired Control Method None Obstetrics History GPAL:G 2 P 0 0 0 0 Past Encounters Encounter ID Performer Location Encounter Start Date Encounter Closed Date Diagnosis/Indication Diagnosis SNOMED-CT Code Diagnosis ICD10 Code Diagnosis Note [id number] Chelo Abdalla , [facility] [address] [address] 02/27/2020 10:57:35 02/27/2020 14:34:49 Gynecologic examination 24000326 Z01.419 Suggested Calcium with Vitamin D 1200-1500m g daily. Patient advised to get an annual flu shot in the fall and she could obtain at [facility] or [facility] care clinic. Also to obtain TDap vaccinatio n if you have not had one in the last 10 years. Recommend yearly mammograms . Encouraged monthly self breast exams. Encourage safe sexual practices, to use condoms and limit partners if not already in a monogamous relationsh ip. Engage in daily exercise of low impact aerobic exercise 45-60 minutes 4-5 times weekly. Avoid tobacco and illicit drugs as well as using moderation with alcohol intake less than 1-2 8 oz beverages daily. This lifestyle behavior pattern will lead to less health conditions and longer life span. If BMI greater than 25 weight watchers or dietary consult advised. All questions have been answered. Patient appears to understand informatio n, but if you have any questions please call or respond to this email. Mammo order given Colonoscop y to be scheduled. D/C pap/hpv hysterecot my for non-cancer indication s. Generalize d anxiety disorder 13494759 F41.1 We agreed to start SSRI for anxiety and prn use of hydroxyzin e for panic attacks. I have advised her to make appt with PCP office as I would like them to update exam/visit for asthma & BP checks as well; we discussed how these things can also trigger anxiety or make it worse. She is eating regular meals and denies blood sugar issues. Will return 4wks to see how she is tolerating this regimen. Counseled on r/b's, most common side effects of this therapy with instructio ns to stop medication with any significan t abnormal change in mood especially with thoughts of suicide/se lf-harm/muñoz rm to others. Understand ing verbalized . Patient is to contact office or go to nearest ED/Urgent care if fever >/= 100.1, pain, excessive bleeding, unusual drainage or swelling in area of concern; or experienci ng worsening sx's or new onset of concerning sx's. Understand ing verbalized . All questions answered to patient satisfacti on. Mild inter mittent asthma 488210806 J45.20 Sent RF but needs to get appt with PCP. Menopausal symptom 53932 002 N95.1 She is on estradiol 2mg daily; we agreed to add Prometrium 100mg nightly which we are hoping to decrease night sweats & help her sleep a bit better. We also discussed further changes in her HRT might need to be made moving forward as well. She is open to this idea. All questions answered. Rx sent. [id number] Chelo Abdalla [facility] [address],[facility] [place] [address] 03/26/2020 10:03:47 03/26/2020 11:03:44 Generalized anxiety disorder 95442373 F41.1 Based on patient report today we agreed to increase dosage of celexa 40mg nightly & rto x 8wks. Still encouarged to update her adult wellness with PCP as her BP can be elevated more than it should be even for anxiety. Risks of HTN/elevat ed BP's reviewed including it's effects on whole body/organ s. Understand ing verbalized . Will call for appt. Note: also consider decreasing Estradiol to 1mg & increasing prometrium 200mg moving forward which also may help decrease anxiety. If BP starts to consistent ly remain above 140/90 then we need to consider d/c estrogen portion of HRT due to increase risks of stroke/CVD /DVT/PE. Time spent in visit is a total of 15 mins with at least 50% of visit consisting of counseling and review of plan of care. [id number] [facility]alla [facility] [address] [address] 07/17/2020 12:33:52 07/17/2020 14:50:55 Generalized anxiety disorder 71196963 F41.1 Doing well on Celexa. It does help with her anxiety and stabilizes mood. Wishes to continue. Mastodynia of right breast 1365381296 6179569 N64.4 Swelling & right breast pain found on exam. Notable difference between breasts Denies family history of breast cancer This issue started approx 1wks ago. Orders given with contact informatio n of imaging center. Promises to call & make appt. Increased blood pressure 69720987 R03.0 Denies sx's. Immediate referral to PCP with ED precaution s discussed as in previous visits. She does agree to going to PCP which we will schedule for her linda. She voices that she has already stopped her Estradiol and only takes progestero ne. Patient is to contact office or go to nearest ED/Urgent care if fever >/= 100.1, pain, excessive bleeding, unusual drainage or swelling in area of concern; or experienci ng worsening sx's or new onset of concerning sx's. Understand ing verbalized . All questions answered to patient satisfacti on. Health Concerns Section Related Observation LastModified by Organization Detai ls LastModified Time None Recorded Concern Status LastModified by Organization Details LastModified Time None Recorded Advance Directives Directive None Recorded Payers Insurance Date Sequence Insurance Name Policy Number Policy Duque Covered Member ID Duque Member ID Guarantor Name 10/08/2020 1 [facility] PRIOR TO 10/18/2020 (MEDICAID REPLACEMENT - HMO) Raven Nicole [id number] Raven Nicole Notes Date Note Type Note Provider Name and Address Organization Details Recorded Time 02/27/2020 text/html Annual GYNReport ed bypatient.History:n o gynecologic complaints Menstrual cycle:Hysterectomy Urinary symptoms:No hematuria; No incontinence Vulva:No genital lesion Vagina:Normal vaginal discharge Breast:No breast pain; No breast lump; No nipple discharge Current Contraception:Monog amous relationship; hysterectomy Sexual complaints:No sexual complaints; No pain during intercourse; Normal libido Menopausal Symptoms:No menopausal symptoms; Normal vaginal lubrication Psychological symptoms:No depression;Anxiety; Significant anxiety. Starting to have panic attacks Feels Covid really freaked me out. Now that she goes to stores she will feel panicky. Episode usually subsides after 30mins or so. Feels dizzy, lightheaded and tense when it happens but has never passed out; neg heart paliptations/SOB. She is a smoker & has asthma for which she uses a prn albuterol inhaler. Neg suicidal ideations or harmful thoughts. [employer] is very supportive. Preventive measures:Encourage self breast examination; Encourage regular exercise; Encourage no tobacco use; Encourage regular mammograms starting age 40; Needs to schedule mammogram; Needs to schedule colonoscopy [facility] Friederich, [facility] [address], [place], [address], [facility] 02/27/2020 14:59:20 03/26/2020 text/html Here for medicat ion check of Celexa for anxiety. She feels she has definitely noted a decrease in her anxiety but feels there is still room for improvement as her response to various situations still seems more heightened emotionally than it should be. Panick attacks have significantly decreased to less than 1-2/wk. She is starting to sleep better; appetite is adequate. She does not feel that she is experiencing any neg se's at this point. [facility] [address], [place], [address], [facility] 03/26/2020 11:03:42 07/17/2020 text/html Here for medicat ion check of Celexa for anxiety. [facility] [address], [place], [address], [facility] 07/17/2020 13:24:13 OBGyn Episode Ob Episode Information Episode Created Date Number of Fetuses Patient Bloodtype Patient rh Status Prepregnancy Weight lbs Domestic Partner Domestic Partner Phone Father Name Scraper Hand Status 02/27/20 20 1 CLOSED Fetus Data First Name Last Name Admitted to NICU Weight (g) Sex Living Outcome Pediatric Complications Fetus ID Race Codes Race Delivery Type [id number] Primary Irineo Calculation Initial Irineo Date Initial Exam Date Initial Exam Provider Initial Ultrasound Date Last Menstrual Period Date Ultra Sound Weeks Gestation 0 Eighteen To Twenty Week Irineo Update Ultra Sound Date Fundal Height At Umbil Quickening Date Ultra Sound Latest Weeks Gestation Final Irineo Confirmed By Final Irineo Confirmed Date Final Irineo Date Ultra Sound Latest Days Gestation 0 0 Menstrual History Last Menstrual Date Menses Monthly On Bcp Conception Prior Menses Frequency Hcg Plus Date Menarche Onset Age Delivery Information Delivery Date Delivery Type Labor Anesthesia Weeks Gestation Incision Type Labor Labor Length Hrs Delivered By Post Complications Tubal Sterilization Discharge Date Comments 8 Discharge Information Feeding Method Contraceptive Method Maternal HG B and HCT Levels Ob Episode Information Episode Created Date Number of Fetuses Patient Bloodtype Patient rh Status Prepregnancy Weight lbs Domestic Partner Domestic Partner Phone Father Name Scraper Hand Status 02/27/20 20 1 CLOSED Fetus Data First Name Last Name Admitted to NICU Weight (g) Sex Living Outcome Pediatric Complications Fetus ID Race Codes Race Delivery Type [id number] Primary Irineo Calculation Initial Irineo Date Initial Exam Date Initial Exam Provider Initial Ultrasound Date Last Menstrual Period Date Ultra Sound Weeks Gestation 0 Eighteen To Twenty Week Irineo Update Ultra Sound Date Fundal Height At Umbil Quickening Date Ultra Sound Latest Weeks Gestation Final Irineo Confirmed By Final Irineo Confirmed Date Final Irineo Date Ultra Sound Latest Days Gestation 0 0 Menstrual History Last Menstrual Date Menses Monthly On Bcp Conception Prior Menses Frequency Hcg Plus Date Menarche Onset Age Delivery Information Delivery Date Delivery Type Labor Anesthesia Weeks Gestation Incision Type Labor Labor Length Hrs Delivered By Post Complications Tubal Sterilization Discharge Date Comments 9 Discharge Information Feeding Method Contraceptive Method Maternal HG B and HCT Levels
[2024-11-01 00:41] LABS: Cannabinoid Screen Urine Positive (Negative)
[2024-11-01 00:48] LABS: Urea Random Urine < 67 MG/DL
[2024-11-01] MEDS: SODIUM CHLORIDE 0.9% IV 1,000 ML 100 ML IV CONT (01:58)
--- NOTE | 2024-11-01 02:16 | ECG_ITS ---
Test Date: 2024-11-01 02:22:31 Measurements Intervals [place] Rate: 72 P: 54 ME: 212 QRS: 43 QRSD: 90 T: 64 QT: 433 QTc: 475 Interpretive Statements SINUS RHYTHM WITH FIRST DEGREE AV BLOCK CANNOT EXCLUDE PREVIOUS SEPTAL INFARCTION ABNORMAL ECG Compared to ECG 10/31/2024 23:23:55 No significant changes Electronically Signed On 11-01-2024 10:13:26 CDT by Tom Stewart M.D.
[2024-11-01 03:10] LABS: Troponin I 0.033 ng/mL (0.000-0.034)
--- NOTE | 2024-11-01 04:54 | PM.IMHP ---
H&P: HPI History of Present Illness Date/Time: 11/01/24 04:54 Chief Complaint: Lung pain Narrative: 54-year-old female with a history of COPD, tobacco abuse, hypertension, anxiety, asthma, IBS, alcohol use disorder presents to [facility] on 10/31/2024 with complaint of left-sided lung pain for a week prior to admission. On arrival she is inebriated. She drinks at least 3-6 beers per day for many years. Reports she has a cyst in her left lung. Denies any trauma, coughing, shortness of breath, bloody sputum. WBC 6.0. Chronic hyponatremia sodium usually between 120 formed 129. On arrival it is 119. BUN 5 serum creatinine 0.8. AST 65, ALT 45. Chronic transaminitis. Troponin 0.016. BNP 4650. Chest x-ray without acute process. Patient was given 1 L normal saline bolus and started on 100 cc/hour thereafter. Nephrology consulted. Recommend trending sodium level. Review of Systems Review of Systems: All systems reviewed & are unremarkable except as noted in HPI and below (Subjective) [facility] Past Medical History Medical History Dizziness Chronic obstructive pulmonary disease Irritable bowel syndrome Chronic rhinitis Tobacco abuse Hypertension Anxiety Asthma Seasonal allergies Surgical History Surgical History History of section 1988 and 1997 History of hysterectomy (2019) History of colonoscopy Family History Family History Grandparent No problems noted. Grandparent Cancer Social History Social History Social History: Surrogate medical decision maker: Moe Jeff, significant other. Code status: Full code. Smoking packs per day: 0.5 Smoking cigarettes per day: 10.0 Years smoked: 40 Smoking pack-years: 20.00 Smoking status: Current every day smoker Tobacco type: cigarettes Alcohol intake: current Drinks per week: 12 Alcohol use details: 3 to 6 beers a day. Substance use: current Substance use type: marijuana Do You Feel Safe in your Home?: Yes Lack of Transportation: No Lack of Food: Never True Current Housing: Decline to Answer Concerned About Future Housing: No Difficulty Paying Gas/Electric Bills: No Difficulty Paying for Meds: No Currently Unemployed: YES Education: High School Diploma/GED Difficulty w/ Childcare or Family Care: No Spiritual care concerns: No Meds Home Medications and Allergies Home Medications ?Medication ?Instructions ?Recorded ?Confirmed ?Type lidocaine 5 % topical patch 1 patch topical DAILY #30 ea 05/01/23 05/20/24 Rx (Lidoderm) metoprolol succinate 50 mg 50 mg PO DAILY #90 tabs 06/27/24 Rx tablet,extended release 24 hr albuterol sulfate 90 mcg/actuation 2 puff inhalation Q4-6H PRN 08/03/24 Rx aerosol inhaler shortness of breath or wheezing #18 grams metoprolol succinate 25 mg 25 mg PO DAILY #90 tabs 08/03/24 Rx tablet,extended release 24 hr buspirone 15 mg tablet 15 mg PO BID #180 tabs 08/15/24 Rx citalopram 40 mg tablet 40 mg PO DAILY #90 tabs 08/15/24 Rx hydroxyzine HCl 25 mg tablet 25 mg PO BID PRN anxiety #180 tabs 08/15/24 Rx montelukast 10 mg tablet 10 mg PO DAILY #90 tabs 08/15/24 Rx (Singulair) Allergies Allergy/AdvReac Type Severity Reaction Status Date / Time latex Allergy Unknown SWELLING Verified 11/01/24 02:34 ON CONTACT Penicillins Allergy Unknown SWELLING, Verified 11/01/24 02:34 PROBLEMS BREATHING bacitracin AdvReac Intermediate SWELLING Verified 11/01/24 02:34 AND PAIN neomycin AdvReac Intermediate SWELLING Verified 11/01/24 02:34 AND PAIN polymyxin B AdvReac Intermediate SWELLING Verified 11/01/24 02:34 AND PAIN morphine AdvReac Unknown VOMITING Verified 11/01/24 02:34 Grass Allergy Unknown HIVES Uncoded 11/01/24 02:34 Vital Signs Vital Signs - 24 hr 10/31/24 22:58 10/31/24 23:03 10/31/24 23:04 Pulse Rate 72 79 Respiratory Rate 23 H Blood Pressure 199/111 H Pulse Oximetry 100 100 Oxygen Delivery Room Air Room Air 11/01/24 00:35 11/01/24 02:33 Pulse Rate 77 86 Respiratory Rate 21 H 19 Blood Pressure 187/100 H 156/95 H Pulse Oximetry 99 99 Oxygen Delivery Exam Const: General: comfortable and no acute distress Other: Inebriated HENMT: Mouth: Yes moist mucous membranes Eyes: Pupils: Equal, round and reactive pupils present Neck: Neck: supple Resp: Effort & Inspection: normal respiratory effort Auscultation: clear to auscultation bilaterally Cardio: Rate: regular rate Rhythm: regular rhythm GI: GI Palp: Yes Soft to palpation and No Tenderness to palpation present (GI) Extrem: General: no edema H&P: Results Labs Labs: Short CBC 10/31/24 Range/Units 23:16 WBC 6.0 (4.5-10.0) K/mm3 Hgb 12.3 (12.0-15.0) g/dL Hct 34.8 L (37.0-47.0) % Plt Count 182 (150-375) k/mm3 BMP 10/31/24 23:16 Sodium 119 L* Potassium 4.5 Chloride 89 L Carbon Dioxide 21 L BUN 5 L D Creatinine 0.80 Glucose 87 Calcium 8.6 Cardiac Enzymes 10/31/24 11/01/24 Range/Units 23:16 02:33 Troponin I 0.016 0.033 D (0.000-0.034) ng/mL Liver Function 10/31/24 Range/Units 23:16 Total Bilirubin 0.3 (0.2-1.3) mg/dL AST 65 H (14-36) U/L ALT 45 H (6-35) U/L Alkaline Phosphatase 111 (38-126) U/L Albumin 4.4 (3.5-5.1) g/dL Urine 10/31/24 Range/Units 23:57 Urine Color Yellow (Yellow) Urine Appearance Clear (Clear) Urine pH 6.0 (5.0-9.0) Ur Specific [place] 1.003 (1.001-1.035) Urine Protein Negative (Negative) mg/dL Urine Glucose (UA) Negative (Negative) mg/dL Assessment and Plan Assessment and plan (1) Alcohol intoxication: Code(s): F10.929 - Alcohol use, unspecified with intoxication, unspecified Status: Acute (2) Hyponatremia: Code(s): E87.1 - Hypo-osmolality and hyponatremia Status: Acute Plan Serum osmolality pending. Likely beer potomania. Repeat BMP now. Full code. Fall precautions. Thiamine and folate. Care coordination consultation Hospitalist [facility] Advance Care Plan I have confirmed that the patient's Advanced Care Plan is present, code status is documented, or surrogate decision maker is listed in patient medical record.: Yes Medication Reconciliation I have utilized all available resources to obtain, update and review the patients current medications (includes all prescriptions, OTC, herbals, cannabis, and nutritional supplements).: Yes
--- NOTE | 2024-11-01 05:16 | ECG_ITS ---
Test Date: 2024-11-01 05:18:56 Measurements Intervals [place] Rate: 70 P: 65 [place]: 221 QRS: 43 QRSD: 85 T: 53 QT: 424 QTc: 458 Interpretive Statements SINUS RHYTHM WITH FIRST DEGREE AV BLOCK CANNOT EXCLUDE PREVIOUS SEPTAL INFARCTION ABNORMAL ECG Compared to ECG 11/01/2024 02:22:31 No significant changes Electronically Signed On 11-01-2024 10:15:36 CDT by Tom Stewart M.D.
[2024-11-01 05:43] LABS: Anion Gap 7 mmol/L (4-12); Blood Urea Nitrogen 4 mg/dL (7-17); Calcium 8.5 mg/dL (8.4-10.2); Carbon Dioxide 18 mmol/L (22-30); Chloride 100 mmol/L (98-107); Estimated CRCL calculation 76 ml/min; Estimated Glomerular Filt Rate > 60; Glucose 77 mg/dL (65-110); Potassium 4.2 mmol/L (3.4-5.0); Sodium 125 mmol/L (137-145)
[2024-11-01 05:54] LABS: Troponin I 0.028 ng/mL (0.000-0.034)
[2024-11-01] MEDS: METOPROLOL SUCCINATE EXT REL 25 MG TABCR PO (08:22)
[2024-11-01] MEDS: FOLIC ACID 1 MG/0.2 ML INJ IV PUSH (08:22)
[2024-11-01] MEDS: METOPROLOL SUCCINATE EXT REL 50 MG TABCR PO (08:22)
[2024-11-01] MEDS: THIAMINE HCL 200 MG/2 ML VIAL 100 MG IV PUSH (08:22)
--- NOTE | 2024-11-01 08:54 | P.PNIM_ITS ---
Progress Note: A&P Assessment and Plan (1) Acute kidney injury: Code(s): N17.9 - Acute kidney failure, unspecified Status: Acute (2) Sepsis: Code(s): A41.9 - Sepsis, unspecified organism Status: Acute (3) Influenza B: Code(s): J10.1 - Influenza due to other identified influenza virus with other respiratory manifestations Status: Acute (4) Dehydration: Code(s): E86.0 - Dehydration Status: Acute (5) Vasovagal syncope: Code(s): R55 - Syncope and collapse Status: Acute (6) Hyponatremia: Code(s): E87.1 - Hypo-osmolality and hyponatremia Status: Acute (7) Elevated LFTs: Code(s): R79.89 - Other specified abnormal findings of blood chemistry Status: Acute (8) Chronic obstructive pulmonary disease: Code(s): J44.9 - Chronic obstructive pulmonary disease, unspecified Status: Acute (9) Hypertension: Code(s): I10 - Essential (primary) hypertension Status: Acute (10) Tobacco abuse: Code(s): Z72.0 - Tobacco use Status: Acute Plan 54-year-old female who presented on 07/10/2023 with altered mental status. Patient had respiratory symptoms with cough nasal congestion lots of diarrhea nausea since past few weeks. While in the waiting room she had an episode of altered mental status and was staring off with minimally responsiveness. She was brought to the room and then had several episodes of emesis no tongue biting seizure-like activity bowel or bladder incontinence. She reports some shortness of breath but no chest pain. She was mildly hypotensive eyes was afebrile. Laboratory evaluation revealed hyponatremia of 125 mild acidosis SILVERIO with creatinine 1. CT abdomen and pelvis with chronic pyelonephritis but no acute abnormalities. CT brain without any acute abnormalities. Patient tested positive for influenza B. WBC platelet 192 lactic acid was elevated at 2.7. Lipase elevated at 354. Urine drug screen positive for cannabinoids. Urine sod ium 29 without alcohol less than 10 influenza a RSV and COVID was negative. Chest x-ray showed minimal infiltrate or atelectasis suggested in the lower lung zones otherwise no active cardiopulmonary disease. Patient received IV fluids with improvement in her blood pressure and lactic acid level. No evidence of any bacterial infection and hence antibiotics on hold. Blood culture has been obtained. Influenza B treated with Tamiflu which will be continued. Hyponatremia likely related to dehydration p.o. intake nausea vomiting and diarrhea for the past several days along with chronic alcohol use. No prior levels available. Slowly Syncopal episode likely vasovagal. Seizure is a possibility prior several episodes of unexplained blackouts. She is monitored on telemetry to rule out any cardiac dysrhythmias. Echo with EF more than 70% grade 2 diastolic dysfunction moderately increased left ventricular wall thickness mild TR mild [place] and EEG is ordered. CT head is negative Elevated LFTs: Viral infection versus chronic alcohol use. Hepatitis profile negative. 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 Start clonidine 0.1 mg b.i.d. p.o. resume home medication for COPD and anxiety DVT prophylaxis Lovenox Code status full code Subjective Date/time seen: 11/01/24 08:54 Interval history: Patient is afebrile, has uncontrolled blood pressure 220 over 116 dock attendant Sodium 125 increase from 119 yesterday evening 11:16 p.m. Patient is still drowsy, some headache, denies visual hallucination Review of Systems Review of Systems: All systems reviewed & are unremarkable except as noted in HPI and below Exam Narrative: General: Mildly ill-appearing female in the semi-Richey position in bed. HEENT: Normocephalic, atraumatic. PERRL, EOMI. Sclera anicteric. Tacky mucous membranes. Neck: Supple. Respiratory: Respirations are nonlabored. Lung sounds are a bit diminished at the bases but otherwise clear to auscultation. Cardiovascular: Regular rate and rhythm with S1-S2. Gastrointestinal: Abdomen is soft, nontender, and nondistended with positive bowel sounds. Skin: Warm and dry. Livedo reticularis of the bilateral lower extremities which she states is chronic and unchanged. Capillary refill is normal. Feet are warm and perfused. Extremities: No cyanosis, clubbing, or edema. Radial and pedal pulses intact. Neurological: Alert. Cranial nerves 2-12 are grossly intact. No gross focal deficits to casual conversation. Psychiatric: Pleasant and cooperative with appropriate mood. Objective Data Vital Signs Vital Signs: Vital Signs - 24 hr 10/31/24 22:58 10/31/24 23:03 10/31/24 23:04 Temperature Pulse Rate 72 79 Respiratory Rate 23 H Blood Pressure 199/111 H Pulse Oximetry 100 100 Oxygen Delivery Room Air Room Air 11/01/24 00:35 11/01/24 02:33 11/01/24 06:18 Temperature Pulse Rate 77 86 86 Respiratory Rate 21 H 19 19 Blood Pressure 187/100 H 156/95 H 156/95 H Pulse Oximetry 99 99 99 Oxygen Delivery 11/01/24 06:35 11/01/24 07:15 11/01/24 07:19 Temperature 97.8 F 98.3 F Pulse Rate 66 66 Respiratory Rate 16 20 Blood Pressure 197/105 H 202/110 H 220/116 H Pulse Oximetry 99 100 Oxygen Delivery 11/01/24 07:24 11/01/24 08:22 11/01/24 08:22 Temperature Pulse Rate 81 81 Respiratory Rate Blood Pressure 186/100 H Pulse Oximetry Oxygen Delivery Intake/Output Intake/Output: Intake & Output 10/29/24 10/30/24 10/31/24 11/01/24 23:59 23:59 23:59 23:59 Intake Total 1580 Output Total 700 Balance 880 Meds/Results Medications: Active Medications Generic Name Dose Route Start Last Admin Trade Name Freq PRN Reason Stop Dose Admin Folic Acid 1 mg 11/01/24 09:00 11/01/24 08:22 Folic Acid 1 Mg/0.2 Ml Inj IV PUSH 1 mg QAM NEY Administration Sodium Chloride 1,000 mls @ 30 mls/hr 11/01/24 00:02 11/01/24 07:16 Normal Saline Iv IV CONT 11/02/24 00:01 30 mls/hr .Q24H STA Infusion Metoprolol Succinate 50 mg 11/01/24 09:00 11/01/24 08:22 Metoprolol Succinate Ext Rel 50 Mg Tabcr PO 50 mg DAILY NEY Administration Metoprolol Succinate 25 mg 11/01/24 09:00 11/01/24 08:22 Metoprolol Succinate Ext Rel 25 Mg Tabcr PO 25 mg DAILY NEY Administration Thiamine HCl 100 mg 11/01/24 09:00 11/01/24 08:22 Thiamine Hcl 200 Mg/2 Ml Vial IV PUSH 100 mg QAM NEY Administration Radiology Results: ITS Impressions Chest X-Ray 10/31/24 23:32 IMPRESSION: No acute cardiopulmonary process. Labs Labs: Laboratory Results - last 24 hr 10/31/24 10/31/24 11/01/24 23:16 23:57 02:33 WBC 6.0 RBC 3.99 L Hgb 12.3 Hct 34.8 L MCV 87.2 MCH 30.8 MCHC 35.3 RDW 13.0 Plt Count 182 MPV 8.7 Immature Gran % (Auto) 0.5 Neut % (Auto) 58.1 Lymph % (Auto) 29.4 [place] % (Auto) 10.0 H Eos % (Auto) 1.0 Baso % (Auto) 1.0 Lymph # (Auto) 1.77 [place] # (Auto) 0.6 Eos # (Auto) 0.1 Baso # (Auto) 0.1 Abs Immat Gran (auto) 0.03 Absolute Neuts (auto) 3.5 Absolute Nucleated RBC 0.000 Nucleated RBC % 0.0 PT 12.7 INR 0.9 APTT 29.4 Sodium 119 L* Potassium 4.5 Chloride 89 L Carbon Dioxide 21 L Anion Gap 9 BUN 5 L D Creatinine 0.80 Estim Creat Clear Calc 67 Estimated GFR > 60 Glucose 87 Calcium 8.6 Total Bilirubin 0.3 AST 65 H ALT 45 H Alkaline Phosphatase 111 Troponin I 0.016 0.033 D NT-Pro-B Natriuret Pep 4650 H Total Protein 7.6 Albumin 4.4 Lipase 183 Urine Color Yellow Urine Appearance Clear Urine pH 6.0 Ur Specific [place] 1.003 Urine Protein Negative Urine Glucose (UA) Negative Urine Ketones Negative Ur Blood (Man) Negative Urine Nitrate Negative Urine Bilirubin Negative Urine Urobilinogen 0.2 Leukocyte Esterase Rfl Negative Ur Random Sodium 10 Ur Random Urea < 67 Urine Creatinine 11.2 Urine Opiates Screen Negative Urine Methadone Screen Negative Ur Barbiturates Screen Negative Ur Phencyclidine Scrn Negative Ur Amphetamine Screen Negative U Benzodiazepines Scrn Negative Urine Cocaine Screen Negative U Cannabinoids Screen Positive A Ethyl Alcohol 244 11/01/24 11/01/24 11/01/24 05:20 05:20 05:20 WBC RBC Hgb Hct MCV MCH MCHC RDW Plt Count MPV Immature Gran % (Auto) Neut % (Auto) Lymph % (Auto) [place] % (Auto) Eos % (Auto) Baso % (Auto) Lymph # (Auto) [place] # (Auto) Eos # (Auto) Baso # (Auto) Abs Immat Gran (auto) Absolute Neuts (auto) Absolute Nucleated RBC Nucleated RBC % PT INR APTT Sodium 125 L Cancelled Potassium 4.2 Cancelled Chloride 100 Carbon Dioxide Anion Gap BUN Creatinine Estim Creat Clear Calc Estimated GFR Glucose Calcium Total Bilirubin AST ALT Alkaline Phosphatase Troponin I NT-Pro-B Natriuret Pep Total Protein Albumin Lipase Urine Color Urine Appearance Urine pH Ur Specific [place] Urine Protein Urine Glucose (UA) Urine Ketones Ur Blood (Man) Urine Nitrate Urine Bilirubin Urine Urobilinogen Leukocyte Esterase Rfl Ur Random Sodium Ur Random Urea Urine Creatinine Urine Opiates Screen Urine Methadone Screen Ur Barbiturates Screen Ur Phencyclidine Scrn Ur Amphetamine Screen U Benzodiazepines Scrn Urine Cocaine Screen U Cannabinoids Screen Ethyl Alcohol 11/01/24 11/01/24 11/01/24 05:20 05:20 05:20 WBC RBC Hgb Hct MCV MCH MCHC RDW Plt Count MPV Immature Gran % (Auto) Neut % (Auto) Lymph % (Auto) [place] % (Auto) Eos % (Auto) Baso % (Auto) Lymph # (Auto) [place] # (Auto) Eos # (Auto) Baso # (Auto) Abs Immat Gran (auto) Absolute Neuts (auto) Absolute Nucleated RBC Nucleated RBC % PT INR APTT Sodium Potassium Chloride Cancelled Carbon Dioxide 18 L Cancelled Anion Gap 7 Cancelled BUN 4 L Creatinine Estim Creat Clear Calc Estimated GFR Glucose Calcium Total Bilirubin AST ALT Alkaline Phosphatase Troponin I NT-Pro-B Natriuret Pep Total Protein Albumin Lipase Urine Color Urine Appearance Urine pH Ur Specific [place] Urine Protein Urine Glucose (UA) Urine Ketones Ur Blood (Man) Urine Nitrate Urine Bilirubin Urine Urobilinogen Leukocyte Esterase Rfl Ur Random Sodium Ur Random Urea Urine Creatinine Urine Opiates Screen Urine Methadone Screen Ur Barbiturates Screen Ur Phencyclidine Scrn Ur Amphetamine Screen U Benzodiazepines Scrn Urine Cocaine Screen U Cannabinoids Screen Ethyl Alcohol 11/01/24 11/01/24 11/01/24 05:20 05:20 05:20 WBC RBC Hgb Hct MCV MCH MCHC RDW Plt Count MPV Immature Gran % (Auto) Neut % (Auto) Lymph % (Auto) [place] % (Auto) Eos % (Auto) Baso % (Auto) Lymph # (Auto) [place] # (Auto) Eos # (Auto) Baso # (Auto) Abs Immat Gran (auto) Absolute Neuts (auto) Absolute Nucleated RBC Nucleated RBC % PT INR APTT Sodium Potassium Chloride Carbon Dioxide Anion Gap BUN Cancelled Creatinine 0.70 Cancelled Estim Creat Clear Calc 76 Cancelled Estimated GFR > 60 Glucose Calcium Total Bilirubin AST ALT Alkaline Phosphatase Troponin I NT-Pro-B Natriuret Pep Total Protein Albumin Lipase Urine Color Urine Appearance Urine pH Ur Specific [place] Urine Protein Urine Glucose (UA) Urine Ketones Ur Blood (Man) Urine Nitrate Urine Bilirubin Urine Urobilinogen Leukocyte Esterase Rfl Ur Random Sodium Ur Random Urea Urine Creatinine Urine Opiates Screen Urine Methadone Screen Ur Barbiturates Screen Ur Phencyclidine Scrn Ur Amphetamine Screen U Benzodiazepines Scrn Urine Cocaine Screen U Cannabinoids Screen Ethyl Alcohol 11/01/24 11/01/24 11/01/24 05:20 05:20 05:20 WBC RBC Hgb Hct MCV MCH MCHC RDW Plt Count MPV Immature Gran % (Auto) Neut % (Auto) Lymph % (Auto) [place] % (Auto) Eos % (Auto) Baso % (Auto) Lymph # (Auto) [place] # (Auto) Eos # (Auto) Baso # (Auto) Abs Immat Gran (auto) Absolute Neuts (auto) Absolute Nucleated RBC Nucleated RBC % PT INR APTT Sodium Potassium Chloride Carbon Dioxide Anion Gap BUN Creatinine Estim Creat Clear Calc Estimated GFR Cancelled Glucose 77 Cancelled Calcium 8.5 Cancelled Total Bilirubin AST ALT Alkaline Phosphatase Troponin I 0.028 NT-Pro-B Natriuret Pep Total Protein Albumin Lipase Urine Color Urine Appearance Urine pH Ur Specific [place] Urine Protein Urine Glucose (UA) Urine Ketones Ur Blood (Man) Urine Nitrate Urine Bilirubin Urine Urobilinogen Leukocyte Esterase Rfl Ur Random Sodium Ur Random Urea Urine Creatinine Urine Opiates Screen Urine Methadone Screen Ur Barbiturates Screen Ur Phencyclidine Scrn Ur Amphetamine Screen U Benzodiazepines Scrn Urine Cocaine Screen U Cannabinoids Screen Ethyl Alcohol
[2024-11-01] MEDS: MONTELUKAST SODIUM 10 MG TABLET PO (09:22)
[2024-11-01] MEDS: CITALOPRAM HYDROBROMIDE 20 MG TABLET 40 MG PO (09:22)
--- NOTE | 2024-11-01 11:25 | P.CONNP_ITS ---
Assessment and Plan Assessment and plan (1) Hyponatremia: Code(s): E87.1 - Hypo-osmolality and hyponatremia Status: Acute Assessment and Plan: * acute on chronic * in June 2023, sodium was running ~ 124 - 129mmol/L * on admission, sodium 119mmol/L * with just normal saline IVFs, has increased to 125mmol/L * suspect her acute and chronic low sodium related to her excessive alcohol intake/beer potomania in conjunction with her known history of COPD and asthma although there is also likely a component of volume depletion playing a role as well * urine electrolytes are prerenal * follow trend of sodium levels * if sodium fails to return to her baseline, consider checking TSH, cortisol, and SPEP/UPEP I will continue to follow the patient with you while she remains hospitalized and make further recommendations as deemed necessary. Thank you for allowing me to participate in the care of this patient. L History of Present Illness Reason for Consult Consult date: 11/01/24 Reason for consult: hyponatremia (acute on chronic) Chief Complaint Chief complaint: Alcohol abuse, Hyponatremia History of Present Illness Narrative: A great majority of the history that I have obtained is from review of the electronic medical record as well as discussion with the physician/nurses involved in the patient's care as is difficult to get a full and complete history from the patient as she falls asleep when I talk with her. The patient is a 54-year-old female with a past medical history as outlined below who presented to [facility] Emergency Room with complaints of left-sided lung pain. Apparently, this symptom has been present for last week if not longer. Unfortunately, even when the patient was in the ER, she was apparently inebriated/drunk making getting a full hip and complete history somewhat difficult. She gave no history of shortness of breath, chest pain, nausea, vomiting, or abdominal pain. Furthermore, no reported trauma hemoptysis, productive cough, or hematemesis. She did admit that she drinks at least 3-6 beers a day for last several years and apparently had 7 more drinks on the evening of presentation to the ER. Workup and evaluation emergency room demonstrated the patient be hemodynamically stable and in no acute distress. Routine blood tests were significant for a sodium of 119, normal renal function, and mildly elevated LFTs with an elevated BNP of 46 50 and a negative troponin. Her chest x-ray was without any acute pathology. Given her low sodium level, she was given a 1 L normal saline bolus and then started on maintenance fluids and subsequently admitted to the hospital for further evaluation and therapy. Since her admission, her sodium level has improved up to 125 millimoles per L just with IV fluids. As far as I can tell, despite her low sodium level on presentation, she was otherwise asymptomatic with regard to this issue. Renal consultation was requested due to her acute on chronic hyponatremia. From review her records, at least in June of 2023, her sodium level was running around 124-129 millimoles per L. as already mentioned, on presentation to the ER, her sodium level is 119 millimoles per L and with IV fluids her sodium is improved up to 125 millimoles per L. presumably, her chronic hyponatremia is due to her excessive alcohol intake/beer potomania possibly exacerbated by her known history of COPD and asthma. I am unclear if she has ever had any further evaluation of her chronic hyponatremia or is this just something that is usually discovered whenever she is admitted to the hospital. Currently, at the time my evaluation, the patient is somewhat sleepy lethargic but is able to awaken to answer a few of my questions but then quickly falls back to sleep.. Review of Systems 2 Review of Systems: As per HPI. FORMERLY [facility], [facility] Past Medical History Medical History Dizziness Chronic obstructive pulmonary disease Irritable bowel syndrome Chronic rhinitis Tobacco abuse Hypertension Anxiety Asthma Seasonal allergies Surgical History Surgical History History of section 1988 and 1997 History of hysterectomy (2018) History of colonoscopy Family History Family History Grandparent No problems noted. Grandparent Cancer Social History Social History Social History: Surrogate medical decision maker: Moe Jeff, significant other. Code status: Full code. Smoking packs per day: 0.8 Smoking cigarettes per day: 16.0 Years smoked: 40 Smoking pack-years: 32.00 Smoking status: Current every day smoker Tobacco type: cigarettes Alcohol intake: current Drinks per week: 70 Alcohol use details: 3 to 6 beers a day. Substance use: current Substance use type: marijuana Do You Feel Safe in your Home?: Yes Lack of Transportation: YES Lack of Food: Never True Current Housing: I Have Housing Concerned About Future Housing: No Difficulty Paying Gas/Electric Bills: No Difficulty Paying for Meds: No Currently Unemployed: No Education: High School Diploma/GED Difficulty w/ Childcare or Family Care: No Spiritual care concerns: No Meds Home Medications and Allergies Home Medications ?Medication ?Instructions ?Recorded ?Confirmed ?Type metoprolol succinate 50 mg 50 mg PO DAILY #90 tabs 06/27/24 11/01/24 Rx tablet,extended release 24 hr albuterol sulfate 90 mcg/actuation 2 puff inhalation Q4-6H PRN 08/03/24 11/01/24 Rx aerosol inhaler shortness of breath or wheezing #18 grams metoprolol succinate 25 mg 25 mg PO DAILY #90 tabs 08/03/24 11/01/24 Rx tablet,extended release 24 hr buspirone 15 mg tablet 15 mg PO BID #180 tabs 08/15/24 11/01/24 Rx citalopram 40 mg tablet 40 mg PO DAILY #90 tabs 08/15/24 11/01/24 Rx hydroxyzine HCl 25 mg tablet 25 mg PO BID PRN anxiety #180 tabs 08/15/24 11/01/24 Rx montelukast 10 mg tablet 10 mg PO DAILY #90 tabs 08/15/24 11/01/24 Rx (Singulair) multivitamin,tx-minerals 1 cap PO DAILY #90 caps 11/02/24 Rx (Multi-Vitamin HP/Minerals capsule) Allergies Allergy/AdvReac Type Severity Reaction Status Date / Time latex Allergy Unknown SWELLING Verified 11/01/24 06:47 ON CONTACT Penicillins Allergy Unknown SWELLING, Verified 11/01/24 06:47 PROBLEMS BREATHING bacitracin AdvReac Intermediate SWELLING Verified 11/01/24 06:47 AND PAIN neomycin AdvReac Intermediate SWELLING Verified 11/01/24 06:47 AND PAIN polymyxin B AdvReac Intermediate SWELLING Verified 11/01/24 06:47 AND PAIN morphine AdvReac Unknown VOMITING Verified 11/01/24 06:47 Grass Allergy Unknown HIVES Uncoded 11/01/24 06:47 Vital Signs Vital Signs Temp Pulse Resp BP Pulse Ox O2 Del Method 11/01/24 11:24 98.6 F 72 16 162/75 H 96 11/01/24 10:30 73 22 H 166/99 H 99 11/01/24 10:00 71 11/01/24 08:22 81 11/01/24 08:22 81 11/01/24 08:00 73 11/01/24 08:00 81 20 100 Room Air 11/01/24 07:24 186/100 H 11/01/24 07:19 220/116 H 11/01/24 07:15 98.3 F 66 20 202/110 H 100 11/01/24 06:35 97.8 F 66 16 197/105 H 99 11/01/24 06:18 86 19 156/95 H 99 11/01/24 02:33 86 19 156/95 H 99 11/01/24 00:35 77 21 H 187/100 H 99 10/31/24 23:04 79 10/31/24 23:03 100 Room Air 10/31/24 22:58 72 23 H 199/111 H 100 Room Air Exam 2 Narrative: GENERAL APPEARANCE: mildly ill-appearing female in no acute distress HEENT: normocephalic, atraumatic, normal conjunctiva and sclera, nares patient NECK: no lymphadenopathy, thyromegaly, or JVD MOUTH: normal lips, teeth, and gums CARDIOVASCULAR: RRR, normal S1 and S2, no rub RESPIRATORY: clear anteriorly; decreased at bases ABDOMEN: soft, nontender, nondistended, positive bowel sounds present EXTREMITIES: no evidence of cyanosis, clubbing, or edema NEUROLOGICAL: awakens with stimulation but quickly falls back asleep Results Lab Results 10/31/24 23:16 11/02/24 03:46 Lab results: Most recent lab results Calcium 8.5 mg/dL (8.4-10.2) 11/01/24 05:20 Calcium Cancelled 11/01/24 05:20 Urine Creatinine 11.2 mg/dL 10/31/24 23:57
[2024-11-01] MEDS: ONDANSETRON INJ 4 MG/2 ML VIAL IV PUSH (15:47)
[2024-11-01 19:25] LABS: Sodium 126 mmol/L (137-145)
[2024-11-01 23:19] LABS: Sodium 127 mmol/L (137-145)
[2024-11-02] VITALS (8 sets, daily range): BP systolic 133–203; BP diastolic 70–109; PULSE 71–72; RESP 14–18; TEMP 36.8–37.1; O2SAT 97
[2024-11-02] MEDS: SODIUM CHLORIDE 0.9% IV 1,000 ML 30 ML IV CONT (00:52)
[2024-11-02 04:33] LABS: Albumin Level 4.1 g/dL (3.5-5.1); Anion Gap 7 mmol/L (4-12); Blood Urea Nitrogen 9 mg/dL (7-17); Calcium 9.2 mg/dL (8.4-10.2); Carbon Dioxide 19 mmol/L (22-30); Chloride 101 mmol/L (98-107); Estimated CRCL calculation 66 ml/min; Estimated Glomerular Filt Rate > 60; Glucose 78 mg/dL (65-110); Potassium 4.2 mmol/L (3.4-5.0); Sodium 127 mmol/L (137-145)
[2024-11-02] MEDS: METOPROLOL SUCCINATE EXT REL 50 MG TABCR PO (08:19)
[2024-11-02] MEDS: METOPROLOL SUCCINATE EXT REL 25 MG TABCR PO (08:19)
[2024-11-02] MEDS: THIAMINE HCL 200 MG/2 ML VIAL 100 MG IV PUSH (08:19)
[2024-11-02] MEDS: MONTELUKAST SODIUM 10 MG TABLET PO (08:19)
[2024-11-02] MEDS: FOLIC ACID 1 MG/0.2 ML INJ IV PUSH (08:21)
[2024-11-02] MEDS: CITALOPRAM HYDROBROMIDE 20 MG TABLET 40 MG PO (08:24)
[2024-11-02] MEDS: ONDANSETRON INJ 4 MG/2 ML VIAL IV PUSH (08:27)
--- NOTE | 2024-11-02 13:48 | P.DS_ITS ---
DS: Admitting Diagnosis Discharge Date 11/02/24 Admitting Diagnosis Lung pain DS: Discharge Diagnosis Discharge Diagnosis (1) Acute kidney injury: Code(s): N17.9 - Acute kidney failure, unspecified Status: Acute (2) Sepsis: Code(s): A41.9 - Sepsis, unspecified organism Status: Acute (3) Influenza B: Code(s): J10.1 - Influenza due to other identified influenza virus with other respiratory manifestations Status: Acute (4) Dehydration: Code(s): E86.0 - Dehydration Status: Acute (5) Vasovagal syncope: Code(s): R55 - Syncope and collapse Status: Acute (6) Hyponatremia: Code(s): E87.1 - Hypo-osmolality and hyponatremia Status: Acute (7) Elevated LFTs: Code(s): R79.89 - Other specified abnormal findings of blood chemistry Status: Acute (8) Chronic obstructive pulmonary disease: Code(s): J44.9 - Chronic obstructive pulmonary disease, unspecified Status: Acute (9) Hypertension: Code(s): I10 - Essential (primary) hypertension Status: Acute (10) Tobacco abuse: Code(s): Z72.0 - Tobacco use Status: Acute Plan 54-year-old female who presented on 07/10/2023 with altered mental status. Patient had respiratory symptoms with cough nasal congestion lots of diarrhea nausea since past few weeks. While in the waiting room she had an episode of altered mental status and was staring off with minimally responsiveness. She was brought to the room and then had several episodes of emesis no tongue biting seizure-like activity bowel or bladder incontinence. She reports some shortness of breath but no chest pain. She was mildly hypotensive eyes was afebrile. Laboratory evaluation revealed hyponatremia of 125 mild acidosis SILVERIO with creatinine 1. CT abdomen and pelvis with chronic pyelonephritis but no acute abnormalities. CT brain without any acute abnormalities. Patient tested positive for influenza B. WBC platelet 192 lactic acid was elevated at 2.7. Lipase elevated at 354. Urine drug screen positive for cannabinoids. Urine sodium 29 without alcohol less than 10 influenza a RSV and COVID was negative. Chest x-ray showed minimal infiltrate or atelectasis suggested in the lower lung zones otherwise no active cardiopulmonary disease. Patient received IV fluids with improvement in her blood pressure and lactic acid level. No evidence of any bacterial infection and hence antibiotics on hold. Blood culture has been obtained. Influenza B treated with Tamiflu which will be continued. Hyponatremia likely related to dehydration p.o. intake nausea vomiting and diarrhea for the past several days along with chronic alcohol use. No prior levels available. Slowly Syncopal episode likely vasovagal. Seizure is a possibility prior several episodes of unexplained blackouts. She is monitored on telemetry to rule out any cardiac dysrhythmias. Echo with EF more than 70% grade 2 diastolic dysfunction moderately increased left ventricular wall thickness mild TR mild ID and EEG is ordered. CT head is negative Elevated LFTs: Viral infection versus chronic alcohol use. Hepatitis profile negative. 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 Start clonidine 0.1 mg b.i.d. p.o. resume home medication for COPD and anxiety DVT prophylaxis Lovenox Code status full code DS: Summary Hospital Course Hospital Course: 54-year-old female who presented on 07/10/2023 with altered mental status. Patient had respiratory symptoms with cough nasal congestion lots of diarrhea nausea since past few weeks. While in the waiting room she had an episode of altered mental status and was staring off with minimally responsiveness. She was brought to the room and then had several episodes of emesis no tongue biting seizure-like activity bowel or bladder incontinence. She reports some shortness of breath but no chest pain. She was mildly hypotensive eyes was afebrile. Laboratory evaluation revealed hyponatremia of 125 mild acidosis SILVERIO with creatinine 1. CT abdomen and pelvis with chronic pyelonephritis but no acute abnormalities. CT brain without any acute abnormalities. Patient tested positive for influenza B. WBC platelet 192 lactic acid was elevated at 2.7. Lipase elevated at 354. Urine drug screen positive for cannabinoids. Urine sodium 29 without alcohol less than 10 influenza a RSV and COVID was negative. Chest x-ray showed minimal infiltrate or atelectasis suggested in the lower lung zones otherwise no active cardiopulmonary disease. Patient received IV fluids with improvement in her blood pressure and lactic acid level. No evidence of any bacterial infection and hence antibiotics on hold. Blood culture has been obtained. Influenza B treated with Tamiflu which will be continued. Hyponatremia likely related to dehydration p.o. intake nausea vomiting and diarrhea for the past several days along with chronic alcohol use. No prior levels available. Slowly Syncopal episode likely vasovagal. Seizure is a possibility prior several e pisodes of unexplained blackouts. She is monitored on telemetry to rule out any cardiac dysrhythmias. Echo with EF more than 70% grade 2 diastolic dysfunction moderately increased left ventricular wall thickness mild TR mild ID and EEG is ordered. CT head is negative Elevated LFTs: Viral infection versus chronic alcohol use. Hepatitis profile negative. SILVERIO mild resolved Anxiety depression home medication citalopram buspirone Chronic alcohol abuse [facility] protocol. patient is now her baseline, upon arrival patient sodium was 119 and now her sodium is trending up to 127 which is close to her baseline, there were no seizures while in the hospital, patient is clinically stable, will discharge the patient today. Time Spent with Patient Time attestation: Total time spent providing and/or coordinating discharge services: DS: Data Data Completed and Pending Labs on day of discharge: Labs from last 24 hours 11/02/24 11/01/24 11/01/24 03:46 22:53 18:58 Sodium 127 L 127 L 126 L Potassium 4.2 Chloride 101 Carbon Dioxide 19 L Anion Gap 7 BUN 9 D Creatinine 0.82 Estim Creat Clear Calc 66 Estimated GFR > 60 Glucose 78 Calcium 9.2 Phosphorus 3.7 Albumin 4.1 Discharge Plan Discharge Attending physician on discharge: Elaine Wright Consulting providers: Darryl Armando; Jenna Villanueva; Tom Stewart; Emil Perera Discharging Clinician: Steve Singh Patient Disposition: Home Activity: as tolerated Diet: heart healthy Discharge Instructions: patient to follow up with her primary care provider as soon as possible, patient is instructed if any symptoms worsen to go to nearest ER Patient Instructions: Alcohol Intoxication (DC), Abuse of Alcohol (DC), Alcohol Dependence (DC), Alcohol Use Disorder (DC) Patient Language: Armenian Stand Alone Forms: General Discharge Information Follow-up/Referrals: Jenae Amaya NP [Primary Care Provider] - Discharge Medications: New Multi-Vitamin HP/Minerals Capsule 1 cap PO DAILY Qty: 90 0RF Continued metoprolol succinate 50 mg tablet extended release 24 hr 50 mg PO DAILY Qty: 90 3RF metoprolol succinate 25 mg tablet extended release 24 hr 25 mg PO DAILY Qty: 90 3RF Rx Instructions: take with metoprolol 50mg to equal 75mg daily albuterol sulfate 90 mcg/actuation HFA aerosol inhaler 2 puff INHALATION Q4-6H PRN (Reason: shortness of breath or wheezing) Qty: 18 11RF buspirone 15 mg tablet 15 mg PO BID Qty: 180 3RF citalopram 40 mg tablet 40 mg PO DAILY Qty: 90 3RF hydroxyzine HCl 25 mg tablet 25 mg PO BID PRN (Reason: anxiety) Qty: 180 3RF montelukast [Singulair] 10 mg tablet 10 mg PO DAILY Qty: 90 3RF Date of admission: 11/01/24 00:24 Primary Care Provider: Jenae Amaya Admitting Provider: Elaine Wright Attending physician on admission: Steve Singh Condition: Improved
[2024-11-03 11:08] LABS: Osmolality, Urine 115 mOsmol/kg (.)
[2024-11-04 13:08] LABS: Osmolality, Serum 299 mOsmol/kg (275-295)
--- NOTE | 2024-11-11 10:14 | PM.DS ---
DS: Admitting Diagnosis Discharge Date 11/02/24 Admitting Diagnosis Lung pain DS: Summary Hospital Course Hospital Course: Patient is 54 y/o female with history of chronic hyponatremia and alcohol abuse presented to ER with C/O lung pain, upon arrival patient was drunk inebriated, her alcohol level was 244, positive for cannabinoids, and sodium of 125 which chronic for the patient most likely due to alcohol Beers she drinks daily. To further evaluate patient lung pain, chest x-ray was normal, her sodium ramakrishna to 127, and her clinical symptoms improved, special procedures nurse felt her she has chronic hyponatremia and this is close to her baseline. patient symptoms have improved, patient is clinically stable and wish to be discharged. will discharge patient to follow up with her primary care. Time Spent with Patient Time attestation: Total time spent providing and/or coordinating discharge services: Exam Narrative: Patient is comfortable, NAD HEENT: eyes are clear and none icteric LUNGS:CTA HEART: RR S1S2 ABD: BS+, Soft and nontender Lower extremities: no edema SKIN: nonjaundiced Neuro: grossly intact. Discharge Plan Discharge Attending physician on discharge: Elaine Wright Consulting providers: Darryl Armando; Jenna Villanueva; Tom Stewart; Emil Perera Discharging Clinician: Steve Singh Patient Disposition: Home Activity: as tolerated Diet: heart healthy Discharge Instructions: patient to follow up with her primary care provider as soon as possible, patient is instructed if any symptoms worsen to go to nearest ER Patient Instructions: Alcohol Intoxication (DC), Abuse of Alcohol (DC), Alcohol Dependence (DC), Alcohol Use Disorder (DC) Patient Language: Syrian Stand Alone Forms: General Discharge Information Follow-up/Referrals: Jenae Amaya NP [Primary Care Provider] - Discharge Medications: New Multi-Vitamin HP/Minerals Capsule 1 cap PO DAILY Qty: 90 0RF Continued metoprolol succinate 50 mg tablet extended release 24 hr 50 mg PO DAILY Qty: 90 3RF metoprolol succinate 25 mg tablet extended release 24 hr 25 mg PO DAILY Qty: 90 3RF Rx Instructions: take with metoprolol 50mg to equal 75mg daily albuterol sulfate 90 mcg/actuation HFA aerosol inhaler 2 puff INHALATION Q4-6H PRN (Reason: shortness of breath or wheezing) Qty: 18 11RF buspirone 15 mg tablet 15 mg PO BID Qty: 180 3RF citalopram 40 mg tablet 40 mg PO DAILY Qty: 90 3RF hydroxyzine HCl 25 mg tablet 25 mg PO BID PRN (Reason: anxiety) Qty: 180 3RF montelukast [Singulair] 10 mg tablet 10 mg PO DAILY Qty: 90 3RF Date of admission: 11/01/24 00:24 Primary Care Provider: Jenae Amaya Admitting Provider: Elaine Wright Attending physician on admission: Steve Singh Condition: Improved
--- NOTE | 2024-11-11 17:22 | P.PNIM_ITS ---
Progress Note: A&P Assessment and Plan (1) Acute kidney injury: Code(s): N17.9 - Acute kidney failure, unspecified Status: Acute (2) Sepsis: Code(s): A41.9 - Sepsis, unspecified organism Status: Acute (3) Influenza B: Code(s): J10.1 - Influenza due to other identified influenza virus with other respiratory manifestations Status: Acute (4) Dehydration: Code(s): E86.0 - Dehydration Status: Acute (5) Vasovagal syncope: Code(s): R55 - Syncope and collapse Status: Acute (6) Hyponatremia: Code(s): E87.1 - Hypo-osmolality and hyponatremia Status: Acute (7) Elevated LFTs: Code(s): R79.89 - Other specified abnormal findings of blood chemistry Status: Acute (8) Chronic obstructive pulmonary disease: Code(s): J44.9 - Chronic obstructive pulmonary disease, unspecified Status: Acute (9) Hypertension: Code(s): I10 - Essential (primary) hypertension Status: Acute (10) Tobacco abuse: Code(s): Z72.0 - Tobacco use Status: Acute Plan 54-year-old female who presented on 07/10/2023 with altered mental status. Patient had respiratory symptoms with cough nasal congestion lots of diarrhea nausea since past few weeks. While in the waiting room she had an episode of altered mental status and was staring off with minimally responsiveness. She was brought to the room and then had several episodes of emesis no tongue biting seizure-like activity bowel or bladder incontinence. She reports some shortness of breath but no chest pain. She was mildly hypotensive eyes was afebrile. Laboratory evaluation revealed hyponatremia of 125 mild acidosis SILVERIO with creatinine 1. CT abdomen and pelvis with chronic pyelonephritis but no acute abnormalities. CT brain without any acute abnormalities. Patient tested positive for influenza B. WBC platelet 192 lactic acid was elevated at 2.7. Lipase elevated at 354. Urine drug screen positive for cannabinoids. Urine sod ium 29 without alcohol less than 10 influenza a RSV and COVID was negative. Chest x-ray showed minimal infiltrate or atelectasis suggested in the lower lung zones otherwise no active cardiopulmonary disease. Patient received IV fluids with improvement in her blood pressure and lactic acid level. No evidence of any bacterial infection and hence antibiotics on hold. Blood culture has been obtained. Influenza B treated with Tamiflu which will be continued. Hyponatremia likely related to dehydration p.o. intake nausea vomiting and diarrhea for the past several days along with chronic alcohol use. No prior levels available. Slowly Syncopal episode likely vasovagal. Seizure is a possibility prior several episodes of unexplained blackouts. She is monitored on telemetry to rule out any cardiac dysrhythmias. Echo with EF more than 70% grade 2 diastolic dysfunction moderately increased left ventricular wall thickness mild TR mild [place] and EEG is ordered. CT head is negative Elevated LFTs: Viral infection versus chronic alcohol use. Hepatitis profile negative. 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 resulting from pain and alcohol withdrawal. Start clonidine 0.1 mg b.i.d. p.o. resume home medication for COPD and anxiety DVT prophylaxis Lovenox Code status full code Subjective Date/time seen: 11/01/24 Exam Narrative: Patient is comfortable, NAD HEENT: eyes are clear and none icteric LUNGS:CTA HEART: RR S1S2 ABD: BS+, Soft and nontender Lower extremities: no edema SKIN: nonjaundiced Neuro: grossly intact. Objective Data Meds/Results Radiology Results: ITS Impressions Chest X-Ray 10/31/24 23:32 IMPRESSION: No acute cardiopulmonary process.
--- NOTE | 2024-11-25 07:31 | P.PNIM_ITS ---
Progress Note: A&P Assessment and Plan (1) Alcohol intoxication: Code(s): F10.929 - Alcohol use, unspecified with intoxication, unspecified Status: Acute (2) Hyponatremia: Code(s): E87.1 - Hypo-osmolality and hyponatremia Status: Acute Plan (1) Alcohol intoxication: Code(s): F10.929 - Alcohol use, unspecified with intoxication, unspecified Status: Acute Monitor and management alcohol withdrawal per [facility] protocol (2) Hyponatremia: Code(s): E87.1 - Hypo-osmolality and hyponatremia Status: Acute color television console monitor shows no arrhythmia Acute hyponatremia, Sodium 125 increase from 119 yesterday evening 11:16 p.m. 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 Start clonidine 0.1 mg b.i.d. p.o. resume home medication for COPD and anxiety Subjective Date/time seen: 11/01/24 Interval history: Patient feels comfortable, has no new issue even overnight. Patient denies headache, lightheadedness, chest pain, shortness breast, abdomen pain, nausea vomiting diarrhea. Patient afebrile, blood pressure stable Exam Narrative: GENERAL: Pleasant, in no acute distress. Well-nourished. - EYES: EOMI. Anicteric. - HENT: Moist mucous membranes. - LUNGS: Clear to auscultation bilateral ly, no wheezing, rhonchi, or rales. - CARDIOVASCULAR: Regular rate and rhyth m. No murmur. No JVD. - ABDOMEN: Soft, non-tender and non-dist ended. No palpable masses. - EXTREMITIES: No edema. Peripheral puls es 2+. Non-tender. - NEUROLOGIC: No focal neurological defi cits. CN II-XII grossly intact. - PSYCHIATRIC: Awake, Alert and oriented x 3. Appropriate mood and affect. - SKIN: No rashes or lesions. Warm. - LYMPH: No cervical lymphadenopathy. Objective Data Meds/Results Radiology Results: ITS Impressions Chest X-Ray 10/31/24 23:32 IMPRESSION: No acute cardiopulmonary process.
== END 2024-11-02 14:54 | disposition home or self-care (01) | DRG 426 ==
LOC: ANHED 11-01 00:24 → ANHIMU 11-01 01:11
PROVIDERS: Internal Medicine Nephrology; Admitting Provider General Practice; Emergency Provider Emergency Medicine; PCP Nurse Practitioner Family; Visit Provider Family Medicine
DX: E87.1 Hypo-osmolality and hyponatremia (principal); F10.129 Alcohol abuse with intoxication, unspecified; Y90.8 Blood alcohol level of 240 mg/100 ml or more; J31.0 Chronic rhinitis; F17.210 Nicotine dependence, cigarettes, uncomplicated; K58.9 Irritable bowel syndrome, unspecified; F41.9 Anxiety disorder, unspecified; Z79.51 Long term (current) use of inhaled steroids; Z79.899 Other long term (current) drug therapy; Z90.710 Acquired absence of both cervix and uterus
CPT/HCPCS: 36415; 71045; 80048; 80053; 80069; 80307; 81003; 82077; 82570; 83690; 83880; 83930; 83935; 84295; 84300; 84484; 84540; 85025; 85610; 85730; 93005; 96360; 99285; A9270; J0360; J2405; J3411; J7030